=== PATIENT | male | born 1970 | race Caucasian/White ===

== ENCOUNTER 2018-06-22 02:16 | Inpatient (IN) ==
[2018-06-22 02:39] LABS: Basophils # 0.2 K/mm3 (0-0.2); Basophils % 0.9 % (0.1-2.0); Eosinophils # 0.8 K/mm3 (0.0-0.4); Eosinophils % 3.5 % (0.1-12.0); Hemoglobin 15.9 g/dL (14.1-18.0); Lymphocytes # 9.4 K/mm3 (0.7-4.5); Lymphocytes % 41.6 K/mm3 (10-50); Mean Corpuscular HGB Conc 34.4 g/dL (31.8-35.4); Mean Corpuscular Volume 89.9 fl (80-94); Mean Platelet Volume 8.7 fl (7.4-10.4); Monocytes # 1.2 K/mm3 (0.1-1.0); Monocytes % 5.4 % (1.7-9.3); Neutrophils % 48.6 % (37.0-80.0); Platelet Count 293 K/mm3 (142-424); Red Blood Count 5.12 M/mm3 (4.60-6.20); Red Cell Distribution Width 14.7 % (11.5-17.5); White Blood Count 22.6 K/mm3 (4.8-10.8)
[2018-06-22 02:41] LABS: ABG Base Excess -1.4 mmol/L (-2.4-2.3); ABG HCO3 31.6 mmhg (22.0-26.0); ABG Oxygen Saturation 95 % (90-100); ABG PO2 114.4 mmhg (80-100); ABG TCO2 36.7 mmhg (23-27)
[2018-06-22 02:42] LABS: Allen's Test Patient Unable; Oxygen 100% AMBU %
[2018-06-22 02:43] LABS: ABG PCO2 166.9 mmhg (35.0-45.0)
[2018-06-22 02:44] LABS: INR 0.99 (0.9-1.1); Prothrombin Time 10.2 seconds (9.4-11.8)
--- NOTE | 2018-06-22 02:44 | Emergency Department Note ---
ED Disposition Clinical Impression: Acute respiratory failure with hypoxia and hypercapnia Disposition: Still a Patient Condition on Discharge: Serious - Critical Care Critical Care Time: Yes Attestation: On 06/22/18, the high probability of a clinically significant, sudden or life threatening deterioration of the following system(s) required my full and direct attention, intervention and personal management. The time I documented below is in addition to time spent performing reported procedures but includes the following listed in this critical care notation. Total Critical Care Time: 45 Vital system(s) involved:: Respiratory Failure My critical care processes included: Assessment & monitoring of V/S, Initial and Re-exams, Data Review/Interpretation, Coordinating Care, Medication Orders and management, Documentation Medical Decision Making - [place] Inquiry Pt receiving controlled substance: No Vital Signs: 06/22/18 02:17 06/22/18 02:52 06/22/18 03:00 Temperature 99.5 F Temperature Source Tympanic Pulse Rate [Right Radial] 115 H 124 H Respiratory Rate 30 H 20 Blood Pressure [Right Arm] 225/152 165/113 Blood Pressure Mean [Right Arm] 176 130 02 Sat by Pulse Oximetry 75 L 99 96 Oxygen Delivery Method CPAP Oxygen Flow Rate (LPM) 100 06/22/18 04:39 06/22/18 04:50 Temperature Temperature Source Pulse Rate [Right Radial] 96 H Respiratory Rate 20 Blood Pressure [Right Arm] 127/77 Blood Pressure Mean [Right Arm] 93 02 Sat by Pulse Oximetry 99 98 Oxygen Delivery Method Mechanical Ventilation Oxygen Flow Rate (LPM) 100 - Lab Data Lab Results 06/22/18 02:24: POC Glucose 245 H 06/22/18 02:26: WBC 22.6 H*, RBC 5.12, Hgb 15.9, Hct 46.0, MCV 89.9, MCH 31.0, MCHC 34.4, RDW 14.7, Plt Count 293, MPV 8.7, Neut % (Auto) 48.6, Lymph % (Auto) 41.6, [place] % (Auto) 5.4, Eos % (Auto) 3.5, Baso % (Auto) 0.9, Neut # (Auto) 11.0 H, Lymph # (Auto) 9.4 H, [place] # (Auto) 1.2 H, Eos # (Auto) 0.8 H, Baso # ( Auto) 0.2, Total Counted 100, Neutrophils % (Manual) 53, Band Neutrophils % 4.0 , Lymphocytes % (Manual) 34, Monocytes % (Manual) 7, Eosinophils % (Manual) 2, Platelet Estimate Normal, RBC Morphology Normal 06/22/18 02:26: Sodium 137, Potassium 3.4 L, Chloride 104, Carbon Dioxide 35 H, Anion Gap 1.4 L, BUN 14, Creatinine 1.39 H, Estimated Creat Clear 102, Estimated GFR 54 L, Est GFR ( Amer) 65, Glucose 295 H, Calcium 8.6, Total Bilirubin 0.5, AST 46 H, ALT 66, Alkaline Phosphatase 138 H, Total Creatine Kinase 224, CK-MB (CK-2) 1.9, CK-MB (CK-2) Rel Index 0.8, Troponin I 0.07 H, Total Protein 8.3 H, Albumin 3.1 L, Globulin 5.2 H, Albumin/Globulin Ratio 0.6 L, Plasma/Serum Alcohol 0 06/22/18 02:26: PT 10.2, INR 0.99, APTT 27.0 06/22/18 02:26: B-Natriuretic Peptide 278 H 06/22/18 02:26: D-Dimer 990 H* 06/22/18 02:39: Specimen Source Left radial, O2 % 100% ambu, ABG pH 6.90 L*, ABG pCO2 166.9 H, ABG pO2 114.4 H, ABG HCO3 31.6 H, ABG Total CO2 36.7 H, ABG O2 Saturation 95, ABG Base Excess -1.4, Ned Test Patient unable 06/22/18 02:45: Urine Color Yellow, Urine Appearance Clear, Urine pH 6.5, Ur Specific [place] 1.025, Urine Protein 3+, Urine Glucose (UA) 2+, Urine Ketones Negative, Urine Blood 2+, Urine Nitrate Negative, Urine Bilirubin Negative, Urine Urobilinogen 1.0, Ur Leukocyte Esterase Negative, Urine RBC 5-10, Urine WBC 3-5, Ur Squamous Epith Cells 3-5 06/22/18 02:45: Urine Opiates Screen Negative, Urine Methadone Screen Negative, Ur Barbituates Screen Negative, Ur Phencyclidine Scrn Negative, Ur Amphetamines Screen Negative, U Benzodiazepines Scrn Negative, Urine Cocaine Screen Negative , U Marijuana (THC) Screen Negative 06/22/18 03:10: Lactate 1.4 06/22/18 04:20: Specimen Source Rt radial, O2 % 100, ABG pH 7.15 L*, ABG pCO2 80.1 H, ABG pO2 449.2 H, ABG HCO3 27.0 H, ABG Total CO2 29.4 H, ABG O2 Saturation 100, ABG Base Excess -2.0, Ned Test Acceptable, Vent Rate 14, Tidal Volume 530, PEEP 5 Result diagrams: 06/22/18 02:26 06/22/18 02:26 Orders (Tests/Meds): ED MEDICATIONS Generic Name Dose Route Start Last Admin Trade Name Freq PRN Reason Stop Dose Admin Propofol 100 mls @ 6.804 mls/hr 06/22/18 02:45 06/22/18 02:39 Diprivan 10mg/Ml 100ml Bottle IV 07/22/18 02:44 6.804 mls/hr .[id number] OTTO Administration Protocol 10 MCG/KG/MIN Azithromycin 500 mg/ Sodium 250 mls @ 250 mls/hr 06/22/18 03:15 Chloride IV 07/06/18 03:14 Q24H OTTO Protocol Ceftriaxone Sodium 1 gm/ 50 mls @ 100 mls/hr 06/22/18 03:15 06/22/18 04:28 Sodium Chloride IV 07/06/18 03:14 100 mls/hr Q24H OTTO Administration Protocol Clindamycin Phosphate 900 mg/ 106 mls @ 106 mls/hr 06/22/18 03:15 06/22/18 04 :38 Sodium Chloride IV 07/06/18 03:14 106 mls/hr Q8H OTTO Administration Protocol Sodium Chloride 1,000 mls @ 999 mls/hr 06/22/18 05:15 Sod Chlor 0.9% 1000ml Bag IV 06/22/18 06:15 .Q1H1M OTTO Sodium Chloride 3 ml 06/22/18 05:05 Sodium Chloride 3% 15ml Neb IH 07/22/18 05:04 ONCE PRN INDUCE SPUTUM COLLECTION Discontinued Medications Generic Name Dose Route Start Last Admin Trade Name Freq PRN Reason Stop Dose Admin Ketamine HCl 100 mg 06/22/18 02:25 06/22/18 02:26 Ketamine 500mg/10ml Vial IV 06/22/18 02:26 100 mg ONCE ONE Administration Methylprednisolone Sodium Succinate 125 mg 06/22/18 03:00 06/22/18 04:28 Solu-Medrol 125mg/2ml Vial IV 06/22/18 03:01 125 mg ONCE ONE Administration Succinylcholine Chloride 150 mg 06/22/18 02:32 06/22/18 02:27 Anectine 20mg/Ml 10ml Mdv IV 06/22/18 02:33 150 mg ONCE ONE Administration ORDERS Category Date Time Status CT abdomen pelvis wo con Stat Cat Scan 06/22/18 03:[address] head/brain wo con Stat Cat Scan 06/22/18 02:32 Taken XR chest 2V Stat Exams 06/22/18 02:30 Stop Req XR chest portable Stat Exams 06/22/18 02:37 Ordered Blood Culture Stat Micro 06/22/18 03:08 Received Sputum Culture & Gram Stain Stat Micro 06/22/18 02:55 Results - Radiology Data #1 Image(s): Chest Image Reviewed: Yes I reviewed the patient's radiology image Endotracheal tube in good position. Mild increased interstitial markings in the bases. No definite confluent infiltrates seen. - CT Data CT Scan: Head, Abdomen, Pelvis Time Received: 04:[address] Reviewed: Yes: I have viewed the radiologist's interpretation Findings Narrative: CT scan interpreted by ad radiologist. Faxed report received and reviewed: Head: No intracranial hemorrhage. No acute territorial ischemia. Abdomen/pelvis: No acute abnormality in the abdomen pelvis. Diffuse groundglass opacities in the lung bases which could be related to edema, infection, or aspiration. - ECG Data Tracing #1 EKG interpreted by Estrada Reis MD: Rhythm: sinus tachycardia Rate: 120 [place]: Rightward Ectopy: none Conduction: normal ST Segment Changes: none T Wave Changes: none Q Waves: none Minimal septal R waves no evidence of acute ischemia or injury Baseline artifact and wander present, but I consider the EKG adequate for accurate interpretation. - Physician Consults Physician Consulted: Dayana Time: 03:35 Reason -: Pt condition Comment/Response: He requests a call back when second set of ABGs is resulted - Reevaluation(s) Time: 05:22 Reevaluation #1: Color is good. Making some purposeful movements trying to pull out the tube. ABGs markedly improved. General Adult HPI - General Chief complaint: Shortness of Breath/Dyspnea Stated complaint: respiratory arrest Time Seen by Provider: 06/22/18 02:17 Mode of Arrival: EMS Limitations: No Limitations Description of Symptoms (Recalled from ER Triage Doc. by RN): states that patient has been short or breath all day. states that patient awoke her this morning with severe shortness of breath. ems arrives with patient with increased work of breathing and lethargic. - History of Present Illness HPI narrative: Brought in by EMS. Limited history available. The patient is unresponsive upon arrival. They report that the patient complained of shortness of breath all day long. Got better during the day but then worsened again tonight. He apparently was verbal but struggling to breathe when they picked him up and then became unresponsive during transport. He arrives with ventilations assisted by bag valve mask. EMS was unable to establish an IV. They state that he has no history of COPD or lung problems. He has diabetes and hypertension, but reportedly stopped taking his medications on his own quite some time ago. - Related Data Home Medications Medication Instructions Recorded Confirmed No Known Home Medications 06/22/18 06/22/18 Allergies Allergy/AdvReac Type Severity Reaction Status Date / Time No Known Allergies Allergy Verified 06/22/18 02:30 [facility] History Medical History: Reports:: Diabetes Mellitus Type 1 - Social History Alcohol Intake: never - Psychiatric History Expresses thoughts of harming self/others: None Suicide Plan Description: No Plan ROS Obtained: Yes unobtainable due to mental status Physical Exam - General General appearance: obtunded, in distress Comment: Labored, ineffective shallow respirations. Cyanotic and diaphoretic. Unresponsive to pain. - Head Head exam: atraumatic, normocephalic - Eye Eye exam: Present: PERRL - ENT ENT exam: Present: other (Vomitus in mouth) - Neck Neck exam: Present: normal inspection - Respiratory Respiratory exam: Present: respiratory distress - Cardiovascular Cardiovascular exam: Present: normal rhythm, tachycardia - Abdominal Exam Abdominal exam: Present: distention - Extremities Exam Extremities exam: Present: normal inspection - Neurological Exam Neurological exam: Present: other (Unresponsive to pain) - Skin Skin exam: Present: cyanosis, diaphoresis Procedures - Miscellaneous Procedure Procedure Performed: EndotrachealIntubation Performed by: ESTRADA REIS Consent: The procedure was performed in an emergent situation. Patient identity confirmed: arm band Indications: airway protection respiratory failure Intubation method: video Patient status: paralyzed (RSI) Pretreatment medications: none Sedatives: ketamine Paralytic: succinyl choline Laryngoscope: direct, Parra 3 Tube size: 7.5 mm Tube type: cuffed Number of attempts: 2 Cords visualized: yes. stomach contents in mouth, copious suctioning required. Post-procedure assessment: chest rise and CO2 detector Breath sounds: equal and absent over the epigastrium Cuff inflated: yes ETT to teeth: 22 cm Tube secured with: ETT [place] Chest x-ray interpreted by me. Chest x-ray findings: endotracheal tube in appropriate position Patient tolerance: Patient tolerated the procedure well with no immediate complications.
[2018-06-22 02:52] LABS: Eosinophils % 2 % (0-3); Lymphocytes % 34 % (10-50); Monocytes % 7 % (2-9); Neutrophils % 53 % (42-76); RBC Morphology Normal; Total Cells Counted 100
[2018-06-22 02:55] LABS: Microscopic, Urine URINE MICROSCOPIC (MICROSCOPIC)
[2018-06-22 03:00] LABS: Appearance,Urine CLEAR (Clear); Bilirubin,Urine Negative (Negative); Blood, Urine 2+ (Negative); Color,Urine YELLOW (Yellow); Glucose,Urine (UA) 2+ (Negative); Ketones,Urine Negative (Negative); Leukocyte Esterase,Urine Negative (Negative); PH,Urine 6.5 (5.0-8.5); Protein,Urine 3+ (Negative); Specific Gravity, Urine 1.025 (1.005-1.030)
[2018-06-22 03:01] LABS: Albumin Level 3.1 gm/dL (3.4-5.0); Albumin/Globulin Ratio 0.6 (1.1-1.8); Anion Gap 1.4 mEq/L (5-15); Bilirubin,Total 0.5 mg/dL (0.2-1.0); Calcium 8.6 mg/dL (8.5-10.1); Globulin 5.2 gm/dl (1.3-3.2); Potassium 3.4 mmoL/L (3.5-5.1); Total Protein,Serum 8.3 gm/dL (6.4-8.2)
[2018-06-22 03:05] LABS: Amphetamine/Metha Screen,Urine Negative ng/mL (<1000); Barbiturates Screen,Urine Negative ng/mL (<200); Benzodiazepines Screen,Urine Negative ng/mL (<200); Cannabinoid Screen,Urine Negative ng/mL (<50); Cocaine Screen,Urine Negative ng/mL (<300); Methadone Screen,Urine Negative ng/mL (<300); Opiate Screen,Urine Negative ng/mL (<300); Phencyclidine Screen,Urine Negative ng/mL (<25)
[2018-06-22 04:52] LABS: ABG Oxygen Saturation 100 % (90-100); ABG PO2 449.2 mmhg (80-100); ABG TCO2 29.4 mmhg (23-27)
[2018-06-22 04:56] LABS: Allen's Test Acceptable; Oxygen 100 %; PEEP 5; Tidal Volume 530
[2018-06-22 04:57] LABS: ABG PH 7.15 mmol/L (7.35-7.45)
[2018-06-22 04:58] LABS: ABG PCO2 80.1 mmhg (35.0-45.0)
--- NOTE | 2018-06-22 08:55 | Pharmacy Consult Notes ---
[facility] Pharmacy VTE Monitoring - Patient Demographics Admission date: 06/22/18 Report Date: 06/22/18 Time: 08:55 Allergies/Adverse Reactions: Patient Allergies No Known Allergies Allergy (Verified 06/22/18 06:08) Height: 1.7 m Weight: 101.151 kg Patient Problems: Current Active Problems Acute respiratory failure with hypoxia and hypercapnia (Acute) - VTE Risk Labs: VTE Related Lab Results Hgb 15.9 g/dL (14.1-18.0) 06/22/18 02:26 Hct 46.0 % (42.0-52.0) 06/22/18 02:26 Plt Count 293 K/mm3 (142-424) 06/22/18 02:26 PT 10.2 seconds (9.4-11.8) 06/22/18 02:26 INR 0.99 (0.9-1.1) 06/22/18 02:26 APTT 27.0 seconds (23.6-34.0) 06/22/18 02:26 BUN 14 mg/dL (7-18) 06/22/18 02:26 Creatinine 1.39 mg/dL (0.70-1.30) H 06/22/18 02:26 Estimated Creat Clear 102 mL/min (0-300) 06/22/18 02:26 Was VTE Risk Assessment Performed: Yes VTE Score: 5 VTE Risk Level: Low Risk - Prophylaxis VTE Prophylaxis Ordered?: Yes Types of VTE Prophylaxis: TEDS Knee High Location of Applied Device: Bilateral Lower Extremeties - VTE Diagnosis Confirmed Treatment or plan recommended: Continue Current Treatment
[2018-06-22 09:34] LABS: ABG Base Excess -0.5 mmol/L (-2.4-2.3); ABG HCO3 25.8 mmhg (22.0-26.0); ABG PH 7.31 mmol/L (7.35-7.45); ABG PO2 143.2 mmhg (80-100); ABG TCO2 27.4 mmhg (23-27)
[2018-06-22 09:36] LABS: Allen's Test ACCEPABLE; Oxygen 50 %
[2018-06-22 09:37] LABS: ABG PCO2 52.9 mmhg (35.0-45.0)
--- NOTE | 2018-06-22 13:09 | History & Physical Report ---
*Admission Date: 06/22/18 *Chief complaint: Acute hypercarbic respiratory failure *History of present illness: Mr. Zambrano is a 48-year-old male with previous diagnosis of hypertension, diabetes, COPD, CKD who is poorly compliant with outpatient treatment and has not been taking any medications for these conditions. He presents with approximately 1 week of worsening shortness of breath, cough, respiratory distress. His is at bedside helping with history, she reports that for the past few days he has had to stop certain activities such as getting under a family member struck to work on it and getting out of the shower due to dyspnea. Yesterday his symptoms became acutely worse where he was reportedly tripoding having difficulty breathing. She called EMS who brought him to the emergency room. At the time of EMS arrival to the patient's home he walked into the ambulance. Upon arrival to the ER the patient was unresponsive necessitating bag valve mask ventilation. He was emergently intubated in the emergency room due to respiratory failure. Labs on presentation consistent for hypercarbia, respiratory acidosis, renal insufficiency ([place] on CKD?). CTA performed [facility] History Medical History: Reports:: Diabetes Mellitus Type 1, Diabetes Mellitus Type 2, Hypertension Denies:: Cancer, Internal Pacemaker, MRSA Other Surgeries: No: Pacemaker Amputation: No Fractures: No - *Social History Educational Level: Attended High School Smoking Status: Current every day smoker Tobacco Type: cigarettes # Packs/Day (cigarettes): 2 Alcohol Intake: never Occupational Status: unemployed Housing: house Household Members: spouse - Psychiatric History Expresses thoughts of harming self/others: None Suicide Plan Description: No Plan *Family Hx:: Diabetes, Heart Attack, Hyperlipidemia, Hypertension Review of Systems - Review of Systems Review of systems:: unable to obtain (Patient intubated and mechanically ventilated upon initial encounter) Meds Home Medications Medication Instructions Recorded Confirmed Type No Known Home Medications 06/22/18 06/22/18 History Allergies Allergy/AdvReac Type Severity Reaction Status Date / Time No Known Allergies Allergy Verified 06/22/18 06:08 Exam Vital signs and Labs for Last 24 Hours: Temp Pulse Resp BP Pulse Ox 97.6 F 85 20 130/81 100 06/22/18 07:15 06/22/18 11:01 06/22/18 11:01 06/22/18 11:01 06/22/18 11:01 Laboratory Results - last 24 hr 06/22/18 02:24: POC Glucose 245 H 06/22/18 02:26: WBC 22.6 H*, RBC 5.12, Hgb 15.9, Hct 46.0, MCV 89.9, MCH 31.0, MCHC 34.4, RDW 14.7, Plt Count 293, MPV 8.7, Neut % (Auto) 48.6, Lymph % (Auto) 41.6, [place] % (Auto) 5.4, Eos % (Auto) 3.5, Baso % (Auto) 0.9, Neut # (Auto) 11.0 H, Lymph # (Auto) 9.4 H, [place] # (Auto) 1.2 H, Eos # (Auto) 0.8 H, Baso # ( Auto) 0.2, Total Counted 100, Neutrophils % (Manual) 53, Band Neutrophils % 4.0 , Lymphocytes % (Manual) 34, Monocytes % (Manual) 7, Eosinophils % (Manual) 2, Platelet Estimate Normal, RBC Morphology Normal 06/22/18 02:26: Sodium 137, Potassium 3.4 L, Chloride 104, Carbon Dioxide 35 H, Anion Gap 1.4 L, BUN 14, Creatinine 1.39 H, Estimated Creat Clear 102, Estimated GFR 54 L, Est GFR ( Amer) 65, Glucose 295 H, Calcium 8.6, Total Bilirubin 0.5, AST 46 H, ALT 66, Alkaline Phosphatase 138 H, Total Creatine Kinase 224, CK-MB (CK-2) 1.9, CK-MB (CK-2) Rel Index 0.8, Troponin I 0.07 H, Total Protein 8.3 H, Albumin 3.1 L, Globulin 5.2 H, Albumin/Globulin Ratio 0.6 L, Plasma/Serum Alcohol 0 06/22/18 02:26: PT 10.2, INR 0.99, APTT 27.0 06/22/18 02:26: B-Natriuretic Peptide 278 H 06/22/18 02:26: D-Dimer 990 H* 06/22/18 02:39: Specimen Source Left radial, O2 % 100% ambu, ABG pH 6.90 L*, ABG pCO2 166.9 H, ABG pO2 114.4 H, ABG HCO3 31.6 H, ABG Total CO2 36.7 H, ABG O2 Saturation 95, ABG Base Excess -1.4, Ned Test Patient unable 06/22/18 02:45: Urine Color Yellow, Urine Appearance Clear, Urine pH 6.5, Ur Specific [place] 1.025, Urine Protein 3+, Urine Glucose (UA) 2+, Urine Ketones Negative, Urine Blood 2+, Urine Nitrate Negative, Urine Bilirubin Negative, Urine Urobilinogen 1.0, Ur Leukocyte Esterase Negative, Urine RBC 5-10, Urine WBC 3-5, Ur Squamous Epith Cells 3-5 06/22/18 02:45: Urine Opiates Screen Negative, Urine Methadone Screen Negative, Ur Barbituates Screen Negative, Ur Phencyclidine Scrn Negative, Ur Amphetamines Screen Negative, U Benzodiazepines Scrn Negative, Urine Cocaine Screen Negative , U Marijuana (THC) Screen Negative 06/22/18 03:10: Lactate 1.4 06/22/18 04:20: Specimen Source Rt radial, O2 % 100, ABG pH 7.15 L*, ABG pCO2 80.1 H, ABG pO2 449.2 H, ABG HCO3 27.0 H, ABG Total CO2 29.4 H, ABG O2 Saturation 100, ABG Base Excess -2.0, Ned Test Acceptable, Vent Rate 14, Tidal Volume 530, PEEP 5 06/22/18 06:47: POC Glucose 215 H 06/22/18 09:00: Specimen Source Rt radial, O2 % 50, ABG pH 7.31 L, ABG pCO2 52.9 H, ABG pO2 143.2 H, ABG HCO3 25.8, ABG Total CO2 27.4 H, ABG Base Excess - 0.5, Ned Test Accepable 06/22/18 11:28: POC Glucose 211 H 06/23/18 06:00: Specimen Source Rt radial, O2 % 60, ABG pH 7.27 L, ABG pCO2 51.4 H, ABG pO2 116.3 H, ABG HCO3 23.1, ABG Total CO2 24.7, ABG O2 Saturation 98 , ABG Base Excess -3.8 L, Ned Test Acceptable, Vent Rate 14, Tidal Volume 550 , PEEP 5 I & O for Last 24 hours: Intake & Output 06/19/18 06/20/18 06/21/18 06/22/18 23:59 23:59 23:59 23:59 Intake Total 1118 / 1118 Output Total 100 / 100 Balance 1018 / 1018 Weight 101.151 kg Microbiology Reports for the Last 24 Hours: Microbiology 06/22/18 02:55 Sputum - Endotracheal Tube Aspirate Gram Stain - Final - *Routine HEENT Exam Head: Present: normocephalic, atraumatic Eye: Present: PERRL ENT: Present: mucous membranes moist - *Routine Neck Exam Present: supple. Absent: JVD, carotid bruit, lymphadenopathy - *Routine Respiratory Exam Present: prolonged expiratory phase, wheezes. Absent: rales, crackles Comments: Mechanically ventilated - *Routine Cardiovascular Exam Present: RRR, Normal S1, Normal S2. Absent: murmur, gallop, rubs - *Routine Abdominal Exam Present: soft, normoactive bowel sounds. Absent: tenderness - *Routine Rectal Exam Patient deferred: visual exam - *Routine Exam Patient deferred: penile exam - *Routine Extremities Exam Absent: cyanosis, clubbing, edema - *Routine Skin Exam Present: intact. Absent: cyanosis, erythema Comments: dirty hands - *Routine Neurological Exam Sedated with propofol, focalizes to painful stimuli, nonpurposeful movements H&P: Result - Labs Labs: Short CBC 06/22/18 Range/Units 02:26 WBC 22.6 H* (4.8-10.8) K/mm3 Hgb 15.9 (14.1-18.0) g/dL Hct 46.0 (42.0-52.0) % Plt Count 293 (142-424) K/mm3 BMP 06/22/18 02:26 Sodium 137 Potassium 3.4 L Chloride 104 Carbon Dioxide 35 H BUN 14 Creatinine 1.39 H Glucose 295 H Calcium 8.6 Cardiac Enzymes 06/22/18 Range/Units 02:26 Total Creatine Kinase 224 (39-308) U/L CK-MB (CK-2) 1.9 (0.0-3.6) ng/ml Troponin I 0.07 H (0.00-0.06) ng/ml Liver Function 06/22/18 Range/Units 02:26 Total Bilirubin 0.5 (0.2-1.0) mg/dL AST 46 H (15-37) U/L ALT 66 (12-78) U/L Alkaline Phosphatase 138 H (46-116) U/L Albumin 3.1 L (3.4-5.0) gm/dL Urine 06/22/18 Range/Units 02:45 Urine Color Yellow (Yellow) Urine Appearance Clear (Clear) Urine pH 6.5 (5.0-8.5) Ur Specific [place] 1.025 (1.005-1.030) Urine Protein 3+ (Negative) Urine Glucose (UA) 2+ (Negative) - Imaging and Cardiology CT scan - chest Status: image reviewed by me Additional comments: Bilateral lower lobe patchy opacification consistent with atelectasis, scant effusion on the left. No overt signs of coronary emboli, no flow voids apparent and pulmonary vasculature. Assessment and Plan (1) Acute kidney injury superimposed on chronic kidney disease Current visit: Yes Status: Acute Category: Medical Code(s): N17.9 - Acute kidney failure, unspecified; N18.9 - Chronic kidney disease, unspecified (2) Diabetes Current visit: Yes Status: Acute Category: Medical Code(s): E11.9 - Type 2 diabetes mellitus without complications (3) Tobacco abuse disorder Current visit: Yes Status: Acute Category: Medical Code(s): Z72.0 - Tobacco use (4) Hypertension Current visit: Yes Status: Acute Category: Medical Code(s): I10 - Essential (primary) hypertension (5) Acute respiratory acidosis Current visit: Yes Status: Acute Category: Medical Code(s): E87.2 - Acidosis (6) Acute respiratory failure with hypoxia and hypercapnia Current visit: Yes Status: Acute Category: Medical Code(s): J96.01 - Acute respiratory failure with hypoxia; J96.02 - Acute respiratory failure with hypercapnia - Assessment and plan all Dx Assessment and Plan for all problems:: Patient presented with acute hypercarbic and hypoxemic respiratory failure with acute respiratory acidosis. Acidosis has resolved with improved ventilation through mechanical support. Tolerated spontaneous breathing trial this morning and able to have been extubated. Transition to CPAP after extubation with continued improvement in mentation. Tolerating 1.5 L supplemental oxygen currently. Presentation most consistent with COPD exacerbation with untreated COPD at baseline. -Wean oxygen as tolerated -CPAP while sleeping -Goal O2 sats greater than 92% while awake, 88% while asleep -Sliding scale insulin for hyperglycemia -Monitor blood pressure, will only treat if becomes symptomatic and systolic greater than 180 -Transition antibiotics to and azithromycin for COPD exacerbation versus pneumonia -Steroids for COPD exacerbation -Discontinue S[place] -Advance diet -Repeat labs in the morning to monitor kidney function
[2018-06-23 06:32] LABS: Anion Gap 9.9 mEq/L (5-15); Calcium 8.4 mg/dL (8.5-10.1); Potassium 3.9 mmoL/L (3.5-5.1)
[2018-06-23 06:46] LABS: Eosinophils % 0.2 % (0.1-12.0); Hematocrit 40.2 % (42.0-52.0); Hemoglobin 13.2 g/dL (14.1-18.0); Lymphocytes # 0.7 K/mm3 (0.7-4.5); Lymphocytes % 5.8 K/mm3 (10-50); Mean Corpuscular HGB Conc 32.8 g/dL (31.8-35.4); Mean Corpuscular Hemoglobin 28.5 pg (27.0-31.2); Mean Corpuscular Volume 87.1 fl (80-94); Mean Platelet Volume 8.8 fl (7.4-10.4); Monocytes # 0.4 K/mm3 (0.1-1.0); Monocytes % 3.1 % (1.7-9.3); Neutrophils # 10.1 K/mm3 (1.8-7.8); Neutrophils % 90.3 % (37.0-80.0); Platelet Count 159 K/mm3 (142-424); Red Blood Count 4.61 M/mm3 (4.60-6.20); White Blood Count 11.1 K/mm3 (4.8-10.8)
[2018-06-23 06:51] LABS: Lymphocytes % 7 % (10-50); Monocytes % 1 % (2-9); Neutrophils % 85 % (42-76); RBC Morphology Normal; Total Cells Counted 100
--- NOTE | 2018-06-23 13:26 | Progress Note ---
Internal Medicine - PN: Subj *Date: 06/23/18 *Time: 13:46 Interval history: Overnight Mr. Zambrano tolerated BiPAP for brief time. Reports it was uncomfortable. Tolerated nasal cannula oxygen with goal sats greater than 92. Has transitioned well to regular diet. Has become more hypertensive throughout the course of today. Overall states he is "feeling better" still reports being sore. Reports improving dyspnea Denies palpitations, confusion, nausea or vomiting, headaches. Exam Vital signs and Labs for Last 24 Hours: Temp Pulse Resp BP Pulse Ox 98.5 F 108 H 20 146/88 93 L 06/23/18 08:00 06/23/18 10:51 06/23/18 08:00 06/23/18 08:00 06/23/18 08:00 Laboratory Results - last 24 hr 06/22/18 16:58: POC Glucose 285 H 06/22/18 20:32: POC Glucose 200 H 06/23/18 05:55: WBC 11.1 H D, RBC 4.61, Hgb 13.2 L, Hct 40.2 L, MCV 87.1, MCH 28.5, MCHC 32.8, RDW 15.0, Plt Count 159 D, MPV 8.8, Neut % (Auto) 90.3 H, Lymph % (Auto) 5.8 L, [place] % (Auto) 3.1, Eos % (Auto) 0.2, Baso % (Auto) 0.0 L, Neut # (Auto) 10.1 H, Lymph # (Auto) 0.7, [place] # (Auto) 0.4, Eos # (Auto) 0.0, Baso # (Auto) 0.0, Total Counted 100, Neutrophils % (Manual) 85 H, Band Neutrophils % 7.0, Lymphocytes % (Manual) 7 L, Monocytes % (Manual) 1 L, Platelet Estimate Normal, RBC Morphology Normal 06/23/18 05:55: Sodium 137, Potassium 3.9, Chloride 103, Carbon Dioxide 28, Anion Gap 9.9, BUN 21 H D, Creatinine 1.19, Estimated Creat Clear 109, Estimated GFR 65, Est GFR ( Amer) 78, Glucose 216 H, Calcium 8.4 L 06/23/18 11:50: POC Glucose 274 H I & O for Last 24 hours: Intake & Output 0806/21/18 06/22/18 06/23/18 23:59 23:59 23:59 23:59 Intake Total 2438 / 2438 580 / 580 Output Total 1100 / 1100 500 / 500 Balance 1338 / 1338 80 / 80 Weight 101.151 kg 103.901 kg - *Routine HEENT Exam Head: Present: normocephalic, atraumatic Eye: Present: EOMI, PERRL. Absent: conjunctival icterus ENT: Present: mucous membranes moist - *Routine Neck Exam Present: supple, full ROM. Absent: JVD, lymphadenopathy - *Routine Respiratory Exam Present: CTA bilaterally, prolonged expiratory phase, crackles (Scant crackles right lower lobe). Absent: accessory muscle use, rales - *Routine Cardiovascular Exam Present: RRR, Normal S1, Normal S2. Absent: murmur, gallop - *Routine Abdominal Exam Present: soft, normoactive bowel sounds. Absent: tenderness - *Routine Rectal Exam Patient deferred: visual exam - *Routine Exam Patient deferred: penile exam - *Routine Extremities Exam Absent: cyanosis, clubbing, edema - *Routine Skin Exam Present: intact. Absent: cyanosis, erythema - *Routine Neurological Exam Present: alert, oriented X3, CN II-XII intact - Routine Psychiatric Exam Present: normal affect, cooperative Assessment and Plan (1) Acute kidney injury superimposed on chronic kidney disease Current visit: Yes Status: Acute Category: Medical Code(s): N17.9 - Acute kidney failure, unspecified; N18.9 - Chronic kidney disease, unspecified Creatinine improving with fluid resuscitation Continue to monitor, labs in the morning (2) Diabetes Current visit: Yes Status: Acute Category: Medical Code(s): E11.9 - Type 2 diabetes mellitus without complications Continue sliding scale insulin, will need oral regimen once home (3) Tobacco abuse disorder Current visit: Yes Status: Acute Category: Medical Code(s): Z72.0 - Tobacco use Continue aspirin therapy, 21 mg patch (4) Hypertension Current visit: Yes Status: Acute Category: Medical Code(s): I10 - Essential (primary) hypertension Trial captopril 6.25 If responds well, initiate lisinopril daily Goal less than 160/100 (5) Acute respiratory acidosis Current visit: Yes Status: Resolved Category: Medical Code(s): E87.2 - Acidosis (6) Acute respiratory failure with hypoxia and hypercapnia Current visit: Yes Status: Acute Category: Medical Code(s): J96.01 - Acute respiratory failure with hypoxia; J96.02 - Acute respiratory failure with hypercapnia Improving, continue duo nebs Transition to oral steroids for total of 5 days Transition to oral Augmentin and azithromycin to complete course for pneumonia Supplemental oxygen as needed Assessment for home oxygen needs
[2018-06-24 06:15] LABS: Anion Gap 8.2 mEq/L (5-15); Calcium 8.6 mg/dL (8.5-10.1); Potassium 4.2 mmoL/L (3.5-5.1)
[2018-06-24 06:16] LABS: Basophils % 0.2 % (0.1-2.0); Eosinophils # 0.1 K/mm3 (0.0-0.4); Eosinophils % 0.4 % (0.1-12.0); Hematocrit 41.6 % (42.0-52.0); Hemoglobin 13.8 g/dL (14.1-18.0); Lymphocytes % 7.7 K/mm3 (10-50); Mean Corpuscular HGB Conc 33.1 g/dL (31.8-35.4); Mean Corpuscular Hemoglobin 28.7 pg (27.0-31.2); Mean Corpuscular Volume 86.6 fl (80-94); Mean Platelet Volume 9.8 fl (7.4-10.4); Monocytes # 0.5 K/mm3 (0.1-1.0); Monocytes % 4.1 % (1.7-9.3); Neutrophils # 11.2 K/mm3 (1.8-7.8); Neutrophils % 86.9 % (37.0-80.0); Platelet Count 190 K/mm3 (142-424); Red Cell Distribution Width 14.6 % (11.5-17.5); White Blood Count 12.8 K/mm3 (4.8-10.8)
[2018-06-24 06:20] VITALS: BP 161/115
[2018-06-24 06:56] LABS: Lymphocytes % 4 % (10-50); Monocytes % 3 % (2-9); Neutrophils % 93 % (42-76); RBC Morphology Normal; Total Cells Counted 100
--- NOTE | 2018-06-24 07:47 | Discharge Summary ---
General - General Admission date:: 06/22/18 Discharge date: 06/24/18 HPI HPI: Mr. Zambrano is a 48-year-old male with previous diagnosis of hypertension, diabetes, COPD, CKD who is poorly compliant with outpatient treatment and has not been taking any medications for these conditions. He presents with approximately 1 week of worsening shortness of breath, cough, respiratory distress. His is at bedside helping with history, she reports that for the past few days he has had to stop certain activities such as getting under a family member struck to work on it and getting out of the shower due to dyspnea. Yesterday his symptoms became acutely worse where he was reportedly tripoding having difficulty breathing. She called EMS who brought him to the emergency room. At the time of EMS arrival to the patient's home he walked into the ambulance. Upon arrival to the ER the patient was unresponsive necessitating bag valve mask ventilation. He was emergently intubated in the emergency room due to respiratory failure. Labs on presentation consistent for hypercarbia, respiratory acidosis, renal insufficiency (IW[place] on CKD?). CTA performed Hospital Course Hospital Course: Patient as noted was intubated in the ER for significant respiratory failure and acidosis. Improved in the emergency department with treatment and was transferred to the intensive care unit. Please see daily progress notes, in brief, patient was able to be expanded the next day, found to have a combination of COPD exacerbation and pneumonia with possible flash pulmonary edema. Also found to have significant blood pressure elevation. Patient has been noncompliant with blood pressure medications because of cost issues. He improved very nicely, able to be weaned off of respiratory support and CPAP therapy in on to room air and blood pressure was moderately controlled with the addition of lisinopril and carvedilol. This morning he feels well, is afebrile, exam has normalized. He will be discharged home with prednisone, antibiotics and blood pressure medicine with short-term follow-up with his regular physician in 4 days. Objective Vital signs: Temp Pulse Resp BP Pulse Ox 98.1 F 98 H 18 161/115 90 L 06/24/18 00:00 06/24/18 06:17 06/24/18 04:00 06/24/18 06:00 06/24/18 06:17 Narrative: Patient is alert, pleasant. Talkative. Lungs have good air movement, minimal rhonchi in the left base. Heart rate regular, abdomen soft, good distal perfusion, normal pulses in all 4 extremities. Abdomen soft and nontender, no edema. Results Labs on day of discharge: Labs from last 24 hours 06/24/18 06/24/18 06/24/18 05:52 05:52 05:52 WBC 12.8 H RBC 4.80 Hgb 13.8 L Hct 41.6 L MCV 86.6 MCH 28.7 MCHC 33.1 RDW 14.6 Plt Count 190 MPV 9.8 Neut % (Auto) 86.9 H Lymph % (Auto) 7.[address] [place] % (Auto) 4.1 Eos % (Auto) 0.4 Baso % (Auto) 0.2 Neut # (Auto) 11.2 H Lymph # (Auto) 1.0 [place] # (Auto) 0.5 Eos # (Auto) 0.1 Baso # (Auto) 0.0 Total Counted 100 Neutrophils % (Manual) 93 H Lymphocytes % (Manual) 4 L Monocytes % (Manual) 3 Platelet Estimate Normal RBC Morphology Normal Sodium 139 Potassium 4.2 Chloride 105 Carbon Dioxide 30 Anion Gap 8.2 BUN 27 H D Creatinine 1.01 Estimated Creat Clear 129 Estimated GFR 78 Est GFR ( Amer) 95 D Glucose 183 H POC Glucose 175 H Calcium 8.6 06/23/18 06/23/18 06/23/18 19:34 16:50 11:50 WBC RBC Hgb Hct MCV MCH MCHC RDW Plt Count MPV Neut % (Auto) Lymph % (Auto) [place] % (Auto) Eos % (Auto) Baso % (Auto) Neut # (Auto) Lymph # (Auto) [place] # (Auto) Eos # (Auto) Baso # (Auto) Total Counted Neutrophils % (Manual) Lymphocytes % (Manual) Monocytes % (Manual) Platelet Estimate RBC Morphology Sodium Potassium Chloride Carbon Dioxide Anion Gap BUN Creatinine Estimated Creat Clear Estimated GFR Est GFR ( Amer) Glucose POC Glucose 229 H 281 H 274 H Calcium 06/23/18 05:30 WBC RBC Hgb Hct MCV MCH MCHC RDW Plt Count MPV Neut % (Auto) Lymph % (Auto) [place] % (Auto) Eos % (Auto) Baso % (Auto) Neut # (Auto) Lymph # (Auto) [place] # (Auto) Eos # (Auto) Baso # (Auto) Total Counted Neutrophils % (Manual) Lymphocytes % (Manual) Monocytes % (Manual) Platelet Estimate RBC Morphology Sodium Potassium Chloride Carbon Dioxide Anion Gap BUN Creatinine Estimated Creat Clear Estimated GFR Est GFR ( Amer) Glucose POC Glucose 208 H Calcium Preliminary micro results at discharge 06/22/18 02:55 Sputum Culture - Preliminary Sputum - Endotracheal Tube Aspirate 06/22/18 03:08 Blood Culture - Preliminary Blood NO GROWTH AFTER 48 HOURS 06/22/18 03:08 Blood Culture - Preliminary Blood NO GROWTH AFTER 48 HOURS DS: Diagnosis - Discharge Diagnosis (1) Acute kidney injury superimposed on chronic kidney disease Status: Resolved (2) Diabetes Status: Chronic (3) Tobacco abuse disorder Status: Chronic (4) Hypertension Status: Chronic (5) Acute respiratory acidosis Status: Resolved (6) Acute respiratory failure with hypoxia and hypercapnia Status: Resolved (7) Chronic kidney disease, stage I Status: Chronic (8) Pneumonia Status: Acute Discharge Plan - Patient Discharge Instructions ACTIVITY: Continue current activity, Other DIET: continue same diet Additional Instructions: No work until seen by primary physician - Follow up Plan Follow up with: Ag Bradley [Primary Care Provider] - 06/28/18 Disposition: Home, Self-Long-Term Medications: Home Medications Medication Instructions Recorded Confirmed Type No Known Home Medications 06/22/18 06/22/18 History Prescriptions/Medication Reconciliation: New Carvedilol [Carvedilol 25mg Tab] 25 mg PO BID #60 tab Lisinopril [Lisinopril 20mg Tab] 20 mg PO DAILY 30 Days #30 tab Amoxicillin/Potassium Clav [Augmentin 500mg tab] 1 tab PO TID #21 tab predniSONE [Deltasone 20mg tablet] 20 mg PO BID 7 Days #14 tab No Action No Known Home Medications
[2018-06-25 06:13] LABS: ABG Oxygen Saturation 98 % (90-100)
== END 2018-06-24 10:30 | disposition home or self-care (01) ==
LOC: ER 02:16 → 2ND 05:07
PROVIDERS: ADMIT Internal Medicine Adolescent Medicine; ATTEND Internal Medicine Adolescent Medicine
CPT/HCPCS: 31500; 36415; 70450; 71010; 71045; 71275; 74176; 80048; 80053; 80305; 81001; 82550; 82553; 82803; 82962; 83605; 83880; 84484; 85007; 85025; 85378; 85610; 85730; 87040; 87070; 87205; 93005; 94640; 94660; 94760; 94761; 96365; 96367; 96375; 99285; J0330; J0456; J2543; J2704; Q9967; S0077

== ENCOUNTER → 2018-08-14 09:14 | Outpatient (CLI) | payer BC, SELFPAY ==
--- NOTE | 2018-08-14 09:21 | XR_ITS ---
XR chest 2V HISTORY: ITS.REASON: PNEUMONIA, COPD ORDERING PHYSICIAN: Ag Bradley PATIENT AGE: 48 years COMPARISON: 06/23/2018 FINDINGS: The cardiomediastinal silhouette and pulmonary vascularity are within normal limits. The lungs are clear without infiltrates, suspicious nodules, or pleural effusions. No acute bony abnormalities. IMPRESSION: Negative chest, no acute finding
== END ==
PROVIDERS: PCP Internal Medicine; Visit Provider Internal Medicine
DX: J18.9 Pneumonia, unspecified organism (principal); J44.9 Chronic obstructive pulmonary disease, unspecified
CPT/HCPCS: 71046

== ENCOUNTER 2023-11-16 13:38 | Emergency (ER) | payer SELFPAY ==
[2023-11-16] VITALS (10 sets, daily range): BP systolic 157–214; BP diastolic 98–129; PULSE 97–130; RESP 13–40; TEMP 36.3–36.7; O2SAT 84–99; BMI 30.1
--- NOTE | 2023-11-16 13:46 | ECG_ITS ---
APPROVED REPORT Exam: Resting ECG HR:125 bpm ECG Measurements Heart Rate 125 AXES MO 201 P -7 QRSd 108 QRS -76 QT 325 T 68 QTc 399 Conclusion SINUS TACHYCARDIA WITH FREQUENT VENTRICULAR PREMATURE COMPLEXES LEFT AXIS DEVIATION [QRS AXIS < -30] POSSIBLE ANTERIOR MYOCARDIAL INFARCTION , OF INDETERMINATE AGE [30 ms Q WAVE IN V3/V4, OR R < 0.2 mV IN V4] ABNORMAL ECG UNCONFIRMED REPORT Electronically signed by : Richard Coleman MD 11/17/2023 08:44:12
--- NOTE | 2023-11-16 13:48 | ED_ITS ---
Discharge Plan Disposition Patient Disposition: Left Against Medical Advice Prescriptions Prescriptions: New doxycycline hyclate 100 mg capsule 100 mg PO BID 10 Days Qty: 20 0RF prednisone 50 mg tablet 50 mg PO DAILY 5 Days Qty: 5 0RF Rx Instructions: Please begin 1 day after ED visit albuterol sulfate 90 mcg/actuation HFA aerosol inhaler 4 inh inhalation Q4H PRN (Reason: shortness of breath or wheezing) Qty: 8.5 0RF Rx Instructions: 4 puffs every 4 hours for 48 hours then as needed for shortness of breath or wheezing following No Action prednisone 20 MG tablet 20 mg PO BID 7 Days Qty: 14 0RF carvedilol 25 MG tablet 25 mg PO BID Qty: 60 0RF lisinopril 20 MG tablet 20 mg PO DAILY 30 Days Qty: 30 0RF amoxicillin-pot clavulanate 1 EACH tablet 1 tab PO TID Qty: 21 0RF Referrals Follow up/Referrals: Arjun Sheppard MD [Staff Physician] - See instructions Provider,MD Marie [Referring] - See instructions Clinical Impressions Clinical Impression: Hypoxic respiratory failure, Non-ST elevation AL (NSTEMI), Acute exacerbation of chronic obstructive pulmonary disease, Bilateral pneumonia Discharge ED Provider: Tank Segura General Adult HPI <Tank Segura MD - Last Filed: 11/16/23 16:57> General Chief complaint: Shortness of Breath/Dyspnea Stated complaint: SOA Time Seen by Provider: 11/16/23 13:48 History of Present Illness HPI narrative: Patient presents for evaluation of shortness of breath. It is worsened over the past 24 to 48 hours however he describes chronic shortness of breath. Has history of COPD requiring hospitalization, associated respiratory failure. He states he additionally has history of hypertension. He has not had access to his medication for what he reports to be years due to insurance reasons. He is noted to be a smoker. Denies any fevers or chills or nausea or vomiting. Describes associated chest pressure that is substernal, nonradiating, nonpleuritic, nonexertional, nonreproducible. No oxygen requirement at home. Arrived to the emergency department tachypneic, hypoxemic. Related Data Previous Rx's Medication Instructions Recorded amoxicillin 500 mg-potassium 1 tab PO TID #21 tabs 06/24/18 clavulanate 125 mg tablet carvedilol 25 mg tablet 25 mg PO BID #60 tabs 06/24/18 lisinopril 20 mg tablet 20 mg PO DAILY 30 days #30 tabs 06/24/18 prednisone 20 mg tablet 20 mg PO BID 7 days #14 tabs 06/24/18 albuterol sulfate 90 mcg/actuation 4 inh inhalation Q4H PRN shortness 11/16/23 aerosol inhaler of breath or wheezing #8.5 grams doxycycline hyclate 100 mg capsule 100 mg PO BID 10 days #20 caps 11/16/23 prednisone 50 mg tablet 50 mg PO DAILY 5 days #5 tabs 11/16/23 Allergies Allergy/AdvReac Type Severity Reaction Status Date / Time No Known Allergies Allergy Verified 06/22/18 06:08 PFS <Tank Segura MD - Last Filed: 11/16/23 16:57> [facility] Disclaimer: The information contained in this section may have been updated after the patient was seen, as this information can be updated by other users. Social History Smoking Status: Current every day smoker tobacco type: cigarettes packs per day: 2 second hand exposure: Yes alcohol intake: never current occupational status: unemployed Travel in the last 8 weeks: None household members: spouse housing: house caffeine: Yes <Tank Segura MD - Last Filed: 11/16/23 16:57> ROS Obtained: Yes Systems reviewed as appropriate & no additional complaints except as documented As per HPI Physical Exam <Tank Segura MD - Last Filed: 11/16/23 16:57> General General appearance: alert and in distress Head Head exam: atraumatic and normocephalic Eye Eye exam: Present normal appearance Neck Neck exam: Present normal inspection Chest Chest inspection: Present normal inspection and symmetric chest wall rise Respiratory Respiratory exam: Present respiratory distress, wheezes, accessory muscle use and prolonged expiratory phase Cardiovascular Cardiovascular exam: Present regular rate and normal rhythm Abdominal Exam Abdominal exam: Present soft Neurological Exam Neurological exam: Present alert and oriented X3 Psychiatric Psychiatric exam: Present normal affect and normal mood Skin Skin exam: Present warm and dry Medical Decision Making <Tank Segura MD - Last Filed: 11/16/23 16:57> Medical Records Medical records reviewed: Yes I reviewed the patient's medical records. [place] Inquiry Pt receiving controlled substance: No Vital Signs: 11/16/23 13:39 11/16/23 14:01 11/16/23 14:31 Temperature 97.4 F L Temperature Source Oral Pulse Rate 117 H 108 H Pulse Rate [Right Radial] 130 H Respiratory Rate 40 H 39 H 21 Blood Pressure 191/128 H 177/113 H Blood Pressure [Right Arm] 214/129 H Blood Pressure Mean 142 137 Blood Pressure Mean [Right Arm] 157 02 Sat by Pulse Oximetry 84 L 97 96 Oxygen Delivery Method Room Air Room Air Nasal Cannula Oxygen Flow Rate (LPM) 5 3 11/16/23 15:01 11/16/23 15:31 11/16/23 16:01 Temperature Temperature Source Pulse Rate 102 H 100 H 102 H Pulse Rate [Right Radial] Respiratory Rate 20 15 21 Blood Pressure 157/103 H 166/98 H 170/109 H Blood Pressure [Right Arm] Blood Pressure Mean 121 121 129 Blood Pressure Mean [Right Arm] 02 Sat by Pulse Oximetry 99 98 98 Oxygen Delivery Method Room Air Room Air Room Air Oxygen Flow Rate (LPM) 11/16/23 16:30 11/16/23 17:00 Temperature Temperature Source Pulse Rate 97 H 97 H Pulse Rate [Right Radial] Respiratory Rate 20 13 Blood Pressure 167/106 H 158/98 H Blood Pressure [Right Arm] Blood Pressure Mean 126 118 Blood Pressure Mean [Right Arm] 02 Sat by Pulse Oximetry Oxygen Delivery Method Oxygen Flow Rate (LPM) Lab Data Lab Results 11/16/23 13:55: SARS-CoV-2 (PCR) Not detected, Influenza A Untype (PCR) Not detected, Influenza Type B (PCR) Not detected 11/16/23 13:58: WBC 11.1 H, RBC 5.39, Hgb 15.5, Hct 46.1, MCV 85.5, MCH 28.7, MCHC 33.6, RDW 14.8, Plt Count 213, MPV 10.0, Neut % (Auto) 77.9, Lymph % (Auto) 14.4, [place] % (Auto) 4.7, Eos % (Auto) 2.5, Baso % (Auto) 0.5, Neut # (Auto) 8.6 H, Lymph # (Auto) 1.6, [place] # (Auto) 0.5, Eos # (Auto) 0.3, Baso # (Auto) 0.1, Sodium 135 L, Potassium 4.0, Chloride 100, Carbon Dioxide 29, Anion Gap 10.0, BUN 14, Creatinine 1.10, Estimated Creat Clear 102, Estimated GFR 69, Est GFR ( Amer) 84, Glucose 215 H, Calcium 8.4, Total Bilirubin 0.9, AST 58, ALT 55, Alkaline Phosphatase 132 H, Troponin I 0.09 H, NT-Pro-B Natriuret Pep 1540 H , Total Protein 7.9, Albumin 4.1, Globulin 3.8 H, Albumin/Globulin Ratio 1.1 11/16/23 14:08: VBG pH 7.24 L, VBG pCO2 59.0 H, VBG pO2 47.8 H, VBG HCO3 24.8, VBG Total CO2 26.6, VBG O2 Saturation 80.3 H, VBG Base Excess -2.6 L 11/16/23 15:47: VBG pH 7.35, VBG pCO2 45.9, VBG pO2 37.1, VBG HCO3 24.7, VBG Total CO2 26.1, VBG O2 Saturation 67.9, VBG Base Excess -0.9 11/16/23 16:30: Troponin I 0.13 H 11/16/23 13:58 11/16/23 13:58 Orders (Tests/Meds): ED MEDICATIONS Generic Name Dose Route Start Last Admin Trade Name Freq PRN Reason Stop Dose Admin Piperacillin Sod/Tazobactam 100 mls @ 200 mls/hr 11/16/23 15:15 11/16/23 15:27 Sod 4.5 gm/ Sodium Chloride IV 11/26/23 15:14 200 mls/hr Q6H OTTO Administration Discontinued Medications Generic Name Dose Route Start Last Admin Trade Name Freq PRN Reason Stop Dose Admin Albuterol/Ipratropium 3 ml 11/16/23 15:12 11/16/23 15:27 Ipratropium/Albuterol 3 Ml Neb IH 11/16/23 15:13 3 ml ONCE ONE Administration Magnesium Sulfate 2 gm in 50 mls @ 50 mls/hr 11/16/23 14:06 11/16/23 14:19 Magnesium Sulfate 2gm/50ml Premix IV 11/16/23 15:05 50 mls/hr ONCE ONE Administration Methylprednisolone Sodium Succinate 40 mg 11/16/23 14:06 11/16/23 14:19 Methylprednisolone Sod Succ 40mg Vial IV 11/16/23 14:07 40 mg ONCE ONE Administration ORDERS Category Date Time Status XR chest 2V Stat Exams 11/16/23 14:07 Completed BNP [Brain Natriuretic Peptide] Stat Lab 11/16/23 13:58 Completed CBC w/Auto Diff [Complete Blood Count Auto Diff] Stat Lab 11/16/23 13:58 Completed CMP [Comprehensive Metabolic Panel] Stat Lab 11/16/23 13:58 Completed Rapid PCR Covid and Flu A/B Stat Lab 11/16/23 13:55 Completed Troponin I Q2H Lab 11/16/23 13:58 Completed Troponin I Q2H Lab 11/16/23 16:30 Completed Troponin I Q2H Lab 11/16/23 19:00 Ordered Troponin I Q2H Lab 11/16/23 22:00 Ordered Blood Culture Stat Micro 11/16/23 15:20 Received VBG [Venous Blood Gas] Stat RT 11/16/23 14:08 Completed VBG [Venous Blood Gas] Stat RT 11/16/23 15:47 Completed ECG initial Besson Routine Y 11/16/23 13:46 Completed ECG repeat same Besson Routine Y 11/16/23 14:53 Completed Medical Decision Narrative: Patient with history and exam per above presenting for evaluation of shortness of breath Diagnoses considered include COPD exacerbation, pneumonia, ACS, heart failure exacerbation, hypertensive emergency, among others ED workup and treatment included: Serial blood gases, CBC, CMP, troponins, BNP, COVID test, chest x-ray Patient was treated with 2 DuoNebs, magnesium IV, Solu-Medrol 40 mg IV, Zosyn for concern for healthcare associated pneumonia Labs were independently interpreted by me, significant for initial blood gas with respiratory acidosis, second blood gas with improvement, chest x-ray read pending, initial troponin elevated however consistent roughly with baseline EKG was independently visualized and interpreted by me significant for sinus rhythm, frequent PVCs, no acute ST changes At this time care was transferred to incoming physician. Patient has improvement of symptoms upon repeat evaluation, oxygen requirement is being weaned, disposition will pend on delta troponin, in conjunction with clinical work of breathing. <Magdaleno Carter MD - Last Filed: 11/16/23 17:28> Vital Signs: 11/16/23 13:39 11/16/23 14:01 11/16/23 14:31 Temperature 97.4 F L Temperature Source Oral Pulse Rate 117 H 108 H Pulse Rate [Right Radial] 130 H Respiratory Rate 40 H 39 H 21 Blood Pressure 191/128 H 177/113 H Blood Pressure [Right Arm] 214/129 H Blood Pressure Mean 142 137 Blood Pressure Mean [Right Arm] 157 02 Sat by Pulse Oximetry 84 L 97 96 Oxygen Delivery Method Room Air Room Air Nasal Cannula Oxygen Flow Rate (LPM) 5 3 11/16/23 15:01 11/16/23 15:31 11/16/23 16:01 Temperature Temperature Source Pulse Rate 102 H 100 H 102 H Pulse Rate [Right Radial] Respiratory Rate 20 15 21 Blood Pressure 157/103 H 166/98 H 170/109 H Blood Pressure [Right Arm] Blood Pressure Mean 121 121 129 Blood Pressure Mean [Right Arm] 02 Sat by Pulse Oximetry 99 98 98 Oxygen Delivery Method Room Air Room Air Room Air Oxygen Flow Rate (LPM) 11/16/23 16:30 11/16/23 17:00 Temperature Temperature Source Pulse Rate 97 H 97 H Pulse Rate [Right Radial] Respiratory Rate 20 13 Blood Pressure 167/106 H 158/98 H Blood Pressure [Right Arm] Blood Pressure Mean 126 118 Blood Pressure Mean [Right Arm] 02 Sat by Pulse Oximetry Oxygen Delivery Method Oxygen Flow Rate (LPM) Lab Data Lab results reviewed: Yes I reviewed the patient's lab results. Lab Results 11/16/23 13:55: SARS-CoV-2 (PCR) Not detected, Influenza A Untype (PCR) Not detected, Influenza Type B (PCR) Not detected 11/16/23 13:58: WBC 11.1 H, RBC 5.39, Hgb 15.5, Hct 46.1, MCV 85.5, MCH 28.7, MCHC 33.6, RDW 14.8, Plt Count 213, MPV 10.0, Neut % (Auto) 77.9, Lymph % (Auto) 14.4, [place] % (Auto) 4.7, Eos % (Auto) 2.5, Baso % (Auto) 0.5, Neut # (Auto) 8.6 H, Lymph # (Auto) 1.6, [place] # (Auto) 0.5, Eos # (Auto) 0.3, Baso # (Auto) 0.1, Sodium 135 L, Potassium 4.0, Chloride 100, Carbon Dioxide 29, Anion Gap 10.0, BUN 14, Creatinine 1.10, Estimated Creat Clear 102, Estimated GFR 69, Est GFR ( Amer) 84, Glucose 215 H, Calcium 8.4, Total Bilirubin 0.9, AST 58, ALT 55, Alkaline Phosphatase 132 H, Troponin I 0.09 H, NT-Pro-B Natriuret Pep 1540 H , Total Protein 7.9, Albumin 4.1, Globulin 3.8 H, Albumin/Globulin Ratio 1.1 11/16/23 14:08: VBG pH 7.24 L, VBG pCO2 59.0 H, VBG pO2 47.8 H, VBG HCO3 24.8, VBG Total CO2 26.6, VBG O2 Saturation 80.3 H, VBG Base Excess -2.6 L 11/16/23 15:47: VBG pH 7.35, VBG pCO2 45.9, VBG pO2 37.1, VBG HCO3 24.7, VBG Total CO2 26.1, VBG O2 Saturation 67.9, VBG Base Excess -0.9 11/16/23 16:30: Troponin I 0.13 H Orders (Tests/Meds): ED MEDICATIONS Generic Name Dose Route Start Last Admin Trade Name Freq PRN Reason Stop Dose Admin Piperacillin Sod/Tazobactam 100 mls @ 200 mls/hr 11/16/23 15:15 11/16/23 15:27 Sod 4.5 gm/ Sodium Chloride IV 11/26/23 15:14 200 mls/hr Q6H OTTO Administration Discontinued Medications Generic Name Dose Route Start Last Admin Trade Name Freq PRN Reason Stop Dose Admin Albuterol/Ipratropium 3 ml 11/16/23 15:12 11/16/23 15:27 Ipratropium/Albuterol 3 Ml Neb IH 11/16/23 15:13 3 ml ONCE ONE Administration Magnesium Sulfate 2 gm in 50 mls @ 50 mls/hr 11/16/23 14:06 11/16/23 14:19 Magnesium Sulfate 2gm/50ml Premix IV 11/16/23 15:05 50 mls/hr ONCE ONE Administration Methylprednisolone Sodium Succinate 40 mg 11/16/23 14:06 11/16/23 14:19 Methylprednisolone Sod Succ 40mg Vial IV 11/16/23 14:07 40 mg ONCE ONE Administration ORDERS Category Date Time Status XR chest 2V Stat Exams 11/16/23 14:07 Completed BNP [Brain Natriuretic Peptide] Stat Lab 11/16/23 13:58 Completed CBC w/Auto Diff [Complete Blood Count Auto Diff] Stat Lab 11/16/23 13:58 Completed CMP [Comprehensive Metabolic Panel] Stat Lab 11/16/23 13:58 Completed Rapid PCR Covid and Flu A/B Stat Lab 11/16/23 13:55 Completed Troponin I Q2H Lab 11/16/23 13:58 Completed Troponin I Q2H Lab 11/16/23 16:30 Completed Troponin I Q2H Lab 11/16/23 19:00 Ordered Troponin I Q2H Lab 11/16/23 22:00 Ordered Blood Culture Stat Micro 11/16/23 15:20 Received VBG [Venous Blood Gas] Stat RT 11/16/23 14:08 Completed VBG [Venous Blood Gas] Stat RT 11/16/23 15:47 Completed ECG initial [place] Routine Y 11/16/23 13:46 Completed ECG repeat same [place] Routine Y 11/16/23 14:53 Completed Medical Decision Narrative: Patient with history and exam per above presenting for evaluation of shortness of breath Diagnoses considered include COPD exacerbation, pneumonia, ACS, heart failure exacerbation, hypertensive emergency, among others ED workup and treatment included: Serial blood gases, CBC, CMP, troponins, BNP, COVID test, chest x-ray Patient was treated with 2 DuoNebs, magnesium IV, Solu-Medrol 40 mg IV, Zosyn for concern for healthcare associated pneumonia Labs were independently interpreted by me, significant for initial blood gas with respiratory acidosis, second blood gas with improvement, chest x-ray read pending, initial troponin elevated however consistent roughly with baseline EKG was independently visualized and interpreted by me significant for sinus rhythm, frequent PVCs, no acute ST changes At this time care was transferred to incoming physician. Patient has improvement of symptoms upon repeat evaluation, oxygen requirement is being weaned, disposition will pend on delta troponin, in conjunction with clinical work of breathing. Is Dr. Carter I took over for Dr. Og pending serial troponins and reassessment of the patient. Patient dramatically improved with interventions chest x-ray performed which I personally interpreted shows bilateral acute infiltrates that are mainly interstitial in nature. Also his troponin is elevated and is trending up consistent with an NSTEMI likely type II demand ischemia. For this reason I advised the patient to be admitted in the hospital but he refuses largely secondary to economic reasons. He did sign out AMA he understood that he could have disability and . I still put a referral in for Dr. Sheppard prescribed him antibiotics breathing treatments and steroids to go home with. He has been advised to return to the emergency department with any recurrence or worsening of his symptoms or if he changes his mind and wants to be admitted for further evaluation. Critical Care <Tank Segura MD - Last Filed: 11/16/23 16:57> Critical Care Time Critical Care Time: No <Magdaleno Carter MD - Last Filed: 11/16/23 17:28> Critical Care Time Critical Care Time: Yes Attestation: On 11/16/23, the high probability of a clinically significant, sudden or life threatening deterioration of the following system(s) required my full and direct attention, intervention and personal management. The time I documented below is in addition to time spent performing reported procedures but includes the following listed in this critical care notation. Total Time Total Critical Care Time: 35
--- NOTE | 2023-11-16 14:07 | XR_ITS ---
FINAL REPORT TECHNIQUE: Chest PA & Lateral CLINICAL HISTORY: Shortness of breath, hypoxemia, wheezing, hx copd COMPARISON: 08/14/2018 FINDINGS: 2 views of the chest were performed. The heart size is mildly enlarged. The mediastinum is within normal limits. Mild interstitial opacity throughout both lungs is new from the prior study. There is a localized airspace opacity at the right lung base probably secondary to diffuse edema. There are no pleural effusions. There is no pneumothorax. The bony thorax appears intact. IMPRESSION: New bilateral interstitial opacity. Localized airspace opacity right lung base. Reviewed, Interpreted and Dictated by Michael Johnson MD Transcribed by Ina Hansen Authenticated and [facility][1]
[2023-11-16 14:14] LABS: Coronavirus 19, PCR Not Detected (NotDetected); Influenza A, PCR Not Detected (NotDetected); Influenza B, PCR Not Detected (NotDetected)
[2023-11-16 14:17] LABS: Chloride 100 mmol/L (98-107)
[2023-11-16 14:18] LABS: Sodium 135 mmol/L (136-145)
[2023-11-16] MEDS: METHYLPREDNISOLONE SOD SUCC 40MG VIAL 40 MG IV (14:19)
[2023-11-16] MEDS: MAGNESIUM SULFATE IN WATER 2 GM/50 ML PIGGYBACK IV (14:19)
[2023-11-16 14:20] LABS: Alanine Aminotransferase 55 U/L (12-78); Alkaline Phosphatase 132 U/L (38-126); Aspartate Amino Transferase 58 U/L (17-59); Bilirubin,Total 0.9 mg/dl (0.2-1.3); Blood Urea Nitrogen 14 mg/dl (9-20); Creatinine Clearance Estimated 102 mL/min (50-200); Estimated Glomerular Filt Rate 69 ml/min (>60); GFR (African American) 84 ML/MIN (>60)
[2023-11-16 14:21] LABS: VBG Base Excess -2.6 mmol/L (-2.4-2.3); VBG HCO3 24.8 mmol/L (23-30); VBG Oxygen Saturation 80.3 % (50-70); VBG PH 7.24 mmol/L (7.31-7.41); VBG PO2 47.8 mmol/L (28-40); VBG Total CO2 26.6 mmol/L (23-27)
[2023-11-16 14:21] LABS: Albumin Level 4.1 g/dl (3.5-5.0); Albumin/Globulin Ratio 1.1 (1.1-1.8); Basophils # 0.1 K/mm3 (0-0.2); Basophils % 0.5 % (0.1-2.0); Calcium 8.4 mg/dl (8.4-10.2); Carbon Dioxide 29 mmol/L (22.0-30.0); Eosinophils # 0.3 K/mm3 (0.0-0.4); Eosinophils % 2.5 % (0.1-12.0); Globulin 3.8 g/dL (1.3-3.2); Glucose 215 mg/dl (74-100); Hematocrit 46.1 % (42.0-52.0); Hemoglobin 15.5 g/dL (14.1-18.0); Lymphocytes # 1.6 K/mm3 (0.7-4.5); Lymphocytes % 14.4 % (10-50); Mean Corpuscular HGB Conc 33.6 g/dL (31.8-35.4); Mean Corpuscular Hemoglobin 28.7 pg (27.0-31.2); Mean Corpuscular Volume 85.5 fl (80-94); Monocytes # 0.5 K/mm3 (0.1-1.0); Monocytes % 4.7 % (1.7-9.3); Neutrophils # 8.6 K/mm3 (1.8-7.8); Neutrophils % 77.9 % (37.0-80.0); Platelet Count 213 K/mm3 (142-424); Red Blood Count 5.39 M/mm3 (4.60-6.20); Red Cell Distribution Width 14.8 % (11.5-17.5); Total Protein,Serum 7.9 g/dl (6.3-8.2); White Blood Count 11.1 K/mm3 (4.8-10.8)
[2023-11-16 14:30] LABS: NT Pro Brain Natriuretic Pep. 1540 pg/mL (0-125)
[2023-11-16 14:33] LABS: Troponin I 0.09 ng/ml (0.00-0.034)
--- NOTE | 2023-11-16 14:53 | ECG_ITS ---
APPROVED REPORT Exam: Resting ECG HR:104 bpm ECG Measurements Heart Rate 104 AXES IN 222 P 66 QRSd 120 QRS 46 QT 349 T 79 QTc 410 Conclusion SINUS TACHYCARDIA WITH FIRST DEGREE AV BLOCK WITH FREQUENT VENTRICULAR PREMATURE COMPLEXES LEFT ATRIAL ENLARGEMENT [-0.15mV P-WAVE IN V1/V2] MODERATE INTRAVENTRICULAR CONDUCTION DELAY [105+ ms QRS DURATION, 80+ ms Q/S IN V1/V2, NO Q AND 60+ ms R IN I/aVL/V5/V6] ABNORMAL ECG UNCONFIRMED REPORT Electronically signed by : Richard Coleman MD 11/17/2023 08:43:59
--- NOTE | 2023-11-16 14:56 | PC.NURSE ---
repeat EKG given to Dr. Segura
[2023-11-16] MEDS: IPRATROPIUM/ALBUTEROL 3 ML NEB IH (15:27)
[2023-11-16] MEDS: PIPERACILLIN/TAZO 4.5 GM in 0.9 % SODIUM CHLORIDE 100 ML IV (15:27)
[2023-11-16 16:03] LABS: VBG Base Excess -0.9 mmol/L (-2.4-2.3); VBG HCO3 24.7 mmol/L (23-30); VBG Oxygen Saturation 67.9 % (50-70); VBG PCO2 45.9 mmol/L (35-51); VBG PH 7.35 mmol/L (7.31-7.41); VBG PO2 37.1 mmol/L (28-40); VBG Total CO2 26.1 mmol/L (23-27)
[2023-11-16 17:13] LABS: Troponin I 0.13 ng/ml (0.00-0.034)
--- NOTE | 2023-11-16 17:21 | PC.NURSE ---
Dr. Carter at to update patient on POC/results
--- NOTE | 2023-11-16 17:35 | PC.NURSE ---
Dr. Carter spoke with patient regarding admission. Pt requesting to leave AMA d/t concern for not having insurance. Went in and spoke with patient regarding risk of leaving AMA and services available regarding assistance with bill and insurance, pt still states he wants to leave AMA. pt instructed to return with worsening of symptoms. MD sending prescriptions for patient to fill, pt in agreeance.
--- NOTE | 2023-11-16 17:36 | PC.NURSE ---
pt requesting to leave AMA. pt does not want to be admitted to the hospital, pt states that he is worried about the bill. educated pt about resources available for him. pt requesting to go home. educated pt about returning to hospital for worsening symptoms.
== END 2023-11-16 17:31 | disposition left against medical advice (07) ==
PROVIDERS: Emergency Provider Emergency Medicine; PCP Internal Medicine
DX: J96.91 Respiratory failure, unspecified with hypoxia (principal); I21.4 Non-ST elevation (NSTEMI) myocardial infarction; J44.1 Chronic obstructive pulmonary disease with (acute) exacerbation; J18.9 Pneumonia, unspecified organism; F17.210 Nicotine dependence, cigarettes, uncomplicated; I49.3 Ventricular premature depolarization
CPT/HCPCS: 71046; 80053; 82803; 83880; 84484; 85025; 87040; 87636; 93005; 96361; 96365; 96375; 99291; J2543; J3475

== ENCOUNTER 2023-11-18 09:56 | Emergency (ER) | payer SELFPAY ==
[2023-11-18 09:57] VITALS: BP 197/140; PULSE 122; RESP 20; TEMP 36.8; O2SAT 95; BMI 38.7
--- NOTE | 2023-11-18 10:03 | ECG_ITS ---
APPROVED REPORT Exam: Resting ECG HR:126 bpm ECG Measurements Heart Rate 126 AXES ND 184 P 65 QRSd 106 QRS 93 QT 304 T 53 QTc 378 Conclusion SINUS TACHYCARDIA WITH OCCASIONAL VENTRICULAR PREMATURE COMPLEXES BORDERLINE RIGHT AXIS DEVIATION [QRS AXIS > 90] MODERATE INTRAVENTRICULAR CONDUCTION DELAY [105+ ms QRS DURATION, 80+ ms Q/S IN V1/V2, NO Q AND 60+ ms R IN I/aVL/V5/V6] NONSPECIFIC T-WAVE ABNORMALITY ABNORMAL ECG UNCONFIRMED REPORT Electronically signed by : Richard Coleman MD 11/19/2023 08:25:25
--- NOTE | 2023-11-18 10:03 | ED_ITS ---
Discharge Plan Disposition Patient Disposition: Home, Self-Care Condition: Good Prescriptions Prescriptions: No Action prednisone 20 MG tablet 20 mg PO BID 7 Days Qty: 14 0RF carvedilol 25 MG tablet 25 mg PO BID Qty: 60 0RF lisinopril 20 MG tablet 20 mg PO DAILY 30 Days Qty: 30 0RF amoxicillin-pot clavulanate 1 EACH tablet 1 tab PO TID Qty: 21 0RF doxycycline hyclate 100 mg capsule 100 mg PO BID 10 Days Qty: 20 0RF prednisone 50 mg tablet 50 mg PO DAILY 5 Days Qty: 5 0RF Rx Instructions: Please begin 1 day after ED visit albuterol sulfate 90 mcg/actuation HFA aerosol inhaler 4 inh inhalation Q4H PRN (Reason: shortness of breath or wheezing) Qty: 8.5 0RF Rx Instructions: 4 puffs every 4 hours for 48 hours then as needed for shortness of breath or wheezing following Referrals Follow up/Referrals: Arjun Kraft DO [Staff Physician] - See instructions Activity Restrictions/Add. Instructions Additional Instructions/Restrictions: Please continue to take the steroids and the antibiotics. You may use either the nebulizer breathing treatment, which contains albuterol and ipratropium, or the albuterol inhaler you were prescribed. Please use these every 4-6 hours. Please be mindful of any triggers to your shortness of breath, this, of course, does include smoking. Please return with any new or worsening symptoms. Clinical Impressions Clinical Impression: Acute exacerbation of chronic obstructive pulmonary disease Instructions Patient Instructions: DI for Chronic Obstructive Pulmonary Disease Discharge ED Provider: Tank Segura General Adult HPI General Chief complaint: Shortness of Breath/Dyspnea Stated complaint: SOA Time Seen by Provider: 11/18/23 10:03 History of Present Illness HPI narrative: The patient presents with a chief complaint of difficulty breathing, which began early this morning around 4 AM. The patient utilized an inhaler, which offered temporary relief; however, the symptoms subsequently recurred. Additionally, the patient reports the onset of pain and a persistent cough starting approximately between 9-9:30 AM. There is no indication of a productive cough or the presence of sputum. The patient denies experiencing fevers or chills. Related Data Previous Rx's Medication Instructions Recorded amoxicillin 500 mg-potassium 1 tab PO TID #21 tabs 06/24/18 clavulanate 125 mg tablet carvedilol 25 mg tablet 25 mg PO BID #60 tabs 06/24/18 lisinopril 20 mg tablet 20 mg PO DAILY 30 days #30 tabs 06/24/18 prednisone 20 mg tablet 20 mg PO BID 7 days #14 tabs 06/24/18 albuterol sulfate 90 mcg/actuation 4 inh inhalation Q4H PRN shortness 11/16/23 aerosol inhaler of breath or wheezing #8.5 grams doxycycline hyclate 100 mg capsule 100 mg PO BID 10 days #20 caps 11/16/23 prednisone 50 mg tablet 50 mg PO DAILY 5 days #5 tabs 11/16/23 Allergies Allergy/AdvReac Type Severity Reaction Status Date / Time No Known Allergies Allergy Verified 06/22/18 06:08 [facility] Disclaimer: The information contained in this section may have been updated after the patient was seen, as this information can be updated by other users. Social History Smoking Status: Current every day smoker tobacco type: cigarettes packs per day: 2 second hand exposure: Yes alcohol intake: never current occupational status: unemployed Travel in the last 8 weeks: None household members: spouse housing: house caffeine: Yes ROS Obtained: Yes Systems reviewed as appropriate & no additional complaints except as documented As per HPI Physical Exam General General appearance: alert and in no apparent distress Head Head exam: atraumatic and normocephalic Eye Eye exam: Present normal appearance Neck Neck exam: Present normal inspection Chest Chest inspection: Present normal inspection and symmetric chest wall rise Respiratory Respiratory exam: Present normal lung sounds bilaterally and wheezes; Absent respiratory distress Cardiovascular Cardiovascular exam: Present regular rate and normal rhythm Abdominal Exam Abdominal exam: Present soft Neurological Exam Neurological exam: Present alert and oriented X3 Psychiatric Psychiatric exam: Present normal affect and normal mood Skin Skin exam: Present warm and dry Medical Decision Making Medical Records Medical records reviewed: Yes I reviewed the patient's medical records. Cosme Inquiry Pt receiving controlled substance: No Vital Signs: 11/18/23 09:57 11/18/23 10:31 11/18/23 11:01 Temperature 98.2 F Temperature Source Oral Pulse Rate 117 H 121 H Pulse Rate [Left Radial] 122 H Respiratory Rate 20 20 Blood Pressure 180/120 H 182/128 H Blood Pressure [Right Arm] 197/140 H Blood Pressure Mean 140 146 Blood Pressure Mean [Right Arm] 159 02 Sat by Pulse Oximetry 95 94 L 95 Oxygen Delivery Method Room Air Room Air 11/18/23 11:08 Temperature 98.0 F Temperature Source Pulse Rate 119 H Pulse Rate [Left Radial] Respiratory Rate 19 Blood Pressure 182/128 H Blood Pressure [Right Arm] Blood Pressure Mean Blood Pressure Mean [Right Arm] 02 Sat by Pulse Oximetry Oxygen Delivery Method Room Air Orders (Tests/Meds): ED MEDICATIONS Discontinued Medications Generic Name Dose Route Start Last Admin Trade Name Freq PRN Reason Stop Dose Admin Albuterol/Ipratropium 3 ml 11/18/23 10:10 11/18/23 10:18 Ipratropium/Albuterol 3 Ml Neb IH 11/18/23 10:11 3 ml ONCE ONE Administration Prednisone 60 mg 11/18/23 10:10 11/18/23 10:17 Prednisone 20mg Tab PO 11/18/23 10:11 60 mg ONCE ONE Administration ORDERS Category Date Time Status XR chest 2V Stat Exams 11/18/23 10:09 Completed Medical Decision Narrative: Patient with history and exam per above presenting for evaluation of dyspnea Diagnoses considered include COPD exacerbation, pneumonia, bronchitis, URI. ED treatment included: ED MEDICATIONS Discontinued Medications Generic Name Dose Route Start Last Admin Trade Name Freq PRN Reason Stop Dose Admin Albuterol/Ipratropium 3 ml 11/18/23 10:10 11/18/23 10:18 Ipratropium/Albuterol 3 Ml Neb IH 11/18/23 10:11 3 ml ONCE ONE Administration Prednisone 60 mg 11/18/23 10:10 11/18/23 10:17 Prednisone 20mg Tab PO 11/18/23 10:11 60 mg ONCE ONE Administration ORDERS Category Date Time Status XR chest 2V Stat Exams 11/18/23 10:09 Completed Imaging was independently visualized and interpreted by me, significant for no acute findings Patient was seen by myself 48 hours ago in the emergency department. He was diagnosed with COPD exacerbation at that time. Patient had oxygen requirement at that time, blood gas with acidosis, which resolved upon administration of breathing treatments, steroids, magnesium. He was offered admission at that time however left AGAINST MEDICAL ADVICE, labs were also significant for elevated troponins consistent with demand ischemia. Clinical picture overall is much more reassuring at this time. Patient denies any chest pain upon initial evaluation, does describe some discomfort after administration of breathing treatments that occurs in the setting of tachycardia. He presented to the emergency department on room air, breathing comfortably, remains with similar clinical picture and reports moderate improvement of symptoms upon repeat evaluation. I instructed him to continue course of antibiotics and steroids. He will likely continue to be symptomatic as long as he continues to smoke. At this time he does not meet requirements for inpatient management of his symptoms and is amenable to discharge at this time. Return precautions were given. Critical Care Critical Care Time Critical Care Time: No
--- NOTE | 2023-11-18 10:09 | XR_ITS ---
PROCEDURE INFORMATION: Exam: XR Chest Exam date and time: 11/18/2023 10:09 AM Age: 53 years old Clinical indication: Shortness of breath; Additional info: SOA, HX copd TECHNIQUE: Imaging protocol: Radiologic exam of the chest. Views: 2 views. COMPARISON: CR XR CHEST 2V 11/16/2023 2:38 PM FINDINGS: Lungs: Increased interstitial markings are noted. Pleural spaces: Unremarkable. No pleural effusion. No pneumothorax. Heart/Mediastinum: Unremarkable. No cardiomegaly. Bones/joints: Unremarkable. IMPRESSION: Diffusely increased interstitial markings of the lungs.
[2023-11-18] MEDS: predniSONE 20MG TAB 60 MG PO (10:17)
[2023-11-18] MEDS: IPRATROPIUM/ALBUTEROL 3 ML NEB IH (10:18)
[2023-11-18 10:31] VITALS: BP 180/120; PULSE 117; RESP 20; O2SAT 94
[2023-11-18 11:01] VITALS: BP 182/128; PULSE 121; O2SAT 95
[2023-11-18 11:08] VITALS: BP 182/128; PULSE 119; RESP 19; TEMP 36.7; O2SAT 95
== END 2023-11-18 11:09 | disposition home or self-care (01) ==
PROVIDERS: Emergency Provider Emergency Medicine; PCP Internal Medicine
DX: J44.1 Chronic obstructive pulmonary disease with (acute) exacerbation (principal); R05.9 Cough, unspecified; F17.210 Nicotine dependence, cigarettes, uncomplicated
CPT/HCPCS: 71046; 93005; 99283

== ENCOUNTER 2023-11-29 02:58 | Inpatient (IN) | payer SELFPAY ==
[2023-11-29] VITALS (32 sets, daily range): BP systolic 99–171; BP diastolic 62–117; PULSE 74–117; RESP 15–26; TEMP 36.6–37.2; O2SAT 90–98; BMI 30.2; BMI 30.3
--- NOTE | 2023-11-29 02:56 | ECG_ITS ---
APPROVED REPORT Exam: Resting ECG HR:115 bpm ECG Measurements Heart Rate 115 AXES CA 218 P 69 QRSd 116 QRS 62 QT 319 T 74 QTc 387 Conclusion SINUS TACHYCARDIA WITH FIRST DEGREE AV BLOCK WITH FREQUENT VENTRICULAR PREMATURE COMPLEXES POSSIBLE LEFT ATRIAL ENLARGEMENT [-0.1mV P-WAVE IN V1/V2] MODERATE INTRAVENTRICULAR CONDUCTION DELAY [110+ ms QRS DURATION] ST ELEVATION, PROBABLY EARLY REPOLARIZATION [ST ELEVATION WITH NORMALLY INFLECTED T-WAVE] NONSPECIFIC T-WAVE ABNORMALITY ABNORMAL ECG UNCONFIRMED REPORT Electronically signed by : Richard Coleman MD 11/29/2023 20:09:09
--- NOTE | 2023-11-29 03:10 | XR_ITS ---
PROCEDURE INFORMATION: Exam: XR Chest Exam date and time: 11/29/2023 3:16 AM Age: 53 years old Clinical indication: Pain; Chest pressure; Additional info: Cp TECHNIQUE: Imaging protocol: Radiologic exam of the chest. Views: 1 view. COMPARISON: CR XR CHEST 2V 11/18/2023 10:09 AM FINDINGS: Lungs: Unremarkable. No consolidation. Pleural spaces: Unremarkable. No pleural effusion. No pneumothorax. Heart/Mediastinum: Mild cardiomegaly. Bones/joints: Unremarkable. IMPRESSION: No acute findings.
[2023-11-29] MEDS: NITROGLYCERIN 0.4MG SL TABLET 0.400000000000000022 MG SL (03:15)
[2023-11-29] MEDS: ASPIRIN 325MG TABLET 325 MG PO (03:15)
--- NOTE | 2023-11-29 03:15 | ECG_ITS ---
APPROVED REPORT Exam: Resting ECG HR:109 bpm ECG Measurements Heart Rate 109 AXES RI 216 P 71 QRSd 121 QRS 64 QT 332 T 85 QTc 396 Conclusion SINUS TACHYCARDIA WITH FIRST DEGREE AV BLOCK POSSIBLE LEFT ATRIAL ENLARGEMENT [-0.1mV P-WAVE IN V1/V2] MODERATE INTRAVENTRICULAR CONDUCTION DELAY [110+ ms QRS DURATION] ST ELEVATION CONSISTENT WITH INJURY, PERICARDITIS, OR EARLY REPOLARIZATION [ST ELEVATION W/O NORMALLY INFLECTED T-WAVE] ABNORMAL ECG UNCONFIRMED REPORT Electronically signed by : Richard Coleman MD 11/29/2023 20:08:56
[2023-11-29 03:19] LABS: Basophils # 0.1 K/mm3 (0-0.2); Basophils % 0.4 % (0.1-2.0); Eosinophils # 0.1 K/mm3 (0.0-0.4); Eosinophils % 0.7 % (0.1-12.0); Hematocrit 46.2 % (42.0-52.0); Lymphocytes # 1.1 K/mm3 (0.7-4.5); Lymphocytes % 8.1 % (10-50); Mean Corpuscular HGB Conc 32.5 g/dL (31.8-35.4); Mean Corpuscular Hemoglobin 28.2 pg (27.0-31.2); Mean Corpuscular Volume 86.9 fl (80-94); Mean Platelet Volume 10.2 fl (7.4-10.4); Monocytes % 7.2 % (1.7-9.3); Neutrophils # 11.3 K/mm3 (1.8-7.8); Neutrophils % 83.5 % (37.0-80.0); Platelet Count 169 K/mm3 (142-424); Red Blood Count 5.32 M/mm3 (4.60-6.20); Red Cell Distribution Width 14.9 % (11.5-17.5); White Blood Count 13.5 K/mm3 (4.8-10.8)
[2023-11-29 03:22] LABS: Chloride 95 mmol/L (98-107); Potassium 3.6 mmoL/L (3.5-5.1); Sodium 134 mmol/L (136-145)
--- NOTE | 2023-11-29 03:23 | PC.NURSE ---
in room talking with patient at this time.
[2023-11-29 03:24] LABS: Alanine Aminotransferase 48 U/L (12-78); Blood Urea Nitrogen 10 mg/dl (9-20); Creatinine Clearance Estimated 91 mL/min (50-200); Estimated Glomerular Filt Rate 63 ml/min (>60); GFR (African American) 76 ML/MIN (>60)
[2023-11-29 03:25] LABS: Albumin Level 3.9 g/dl (3.5-5.0); Albumin/Globulin Ratio 1.1 (1.1-1.8); Alkaline Phosphatase 103 U/L (38-126); Anion Gap 11.6 mEq/L (5-15); Aspartate Amino Transferase 33 U/L (17-59); Bilirubin,Total 1.5 mg/dl (0.2-1.3); Calcium 8.4 mg/dl (8.4-10.2); Carbon Dioxide 31 mmol/L (22.0-30.0); Globulin 3.4 g/dL (1.3-3.2); Glucose 235 mg/dl (74-100); Total Protein,Serum 7.3 g/dl (6.3-8.2)
--- NOTE | 2023-11-29 03:28 | ED_ITS ---
Discharge Plan Disposition Patient Disposition: Admitted Clinical Impressions Clinical Impression: Non-ST elevation IA (NSTEMI) Heart failure Qualifiers: Heart failure type: unspecified Heart failure chronicity: acute Qualified Code(s): I50.9 - Heart failure, unspecified Pericarditis Qualifiers: Pericarditis type: unspecified type Chronicity: acute Qualified Code(s): I30.9 - Acute pericarditis, unspecified Discharge ED Provider: Ren Fisher Adult HPI General Chief complaint: Chest Pain Stated complaint: cp Time Seen by Provider: 11/29/23 03:01 Mode of Arrival: Ambulatory Source of Information: Patient Limitations: No Limitations Description of Symptoms (Recalled from ER Triage Doc. by RN): pt c/o rt side chest pain x 2 days. pt states was seen in er on 11/18 for SOA and diagnosed with copd exacerbation History of Present Illness HPI narrative: 53-year-old male, history of hypertension, [id number] diabetes, COPD presents with worsening chest pain. He reports he takes medications that has not seen doctors for at least 5 years. He was seen here before New Years with shortness of breath and was diagnosed with COPD exacerbation and NSTEMI. He left [place] at that time because he did not think he could afford admission. He reports he had some symptomatic improvement, but his chest pain has again returned and worsened, especially over the last few days and tonight. He reports shortness of breath worse with lying down. Chest pain is centrally located, pressure type. Related Data Home Medications Medication Instructions Recorded Confirmed No Known Home Medications 11/29/23 11/29/23 Allergies Allergy/AdvReac Type Severity Reaction Status Date / Time No Known Allergies Allergy Verified 06/22/18 06:08 [facility] Disclaimer: The information contained in this section may have been updated after the patient was seen, as this information can be updated by other users. Social History Smoking Status: Current every day smoker tobacco type: cigarettes packs per day: 2 second hand exposure: Yes alcohol intake: never current occupational status: unemployed Travel in the last 8 weeks: None household members: spouse housing: house caffeine: Yes ROS Obtained: Yes All systems reviewed & no additional complaints except as documented Physical Exam General General appearance: alert Comment: Uncomfortable appearing Head Head exam: atraumatic and normocephalic Eye Eye exam: Present normal appearance, PERRL and EOMI ENT ENT exam: Present normal oropharynx and normal external ear exam Neck Neck exam: Present normal inspection and full ROM Chest Chest inspection: Present normal inspection and symmetric chest wall rise; Absent tenderness Respiratory Respiratory exam: Present other (Bibasilar crackles); Absent respiratory distress Cardiovascular Cardiovascular exam: Present normal rhythm and tachycardia Abdominal Exam Abdominal exam: Present soft; Absent distention, tenderness or guarding Extremities Exam Extremities exam: Present normal inspection; Absent edema or joint swelling Back Exam Back exam: Present normal inspection; Absent tenderness Neurological Exam Neurological exam: Present alert and oriented X3; Absent motor sensory deficit Psychiatric Psychiatric exam: Present normal affect and normal mood Skin Skin exam: Present warm, dry and normal color Lymphatic Lymphatic Findings: no adenopathy Medical Decision Making Medical Records Medical records reviewed: Yes I reviewed the patient's medical records. [place] Inquiry Pt receiving controlled substance: No Cosme was queried for this patient: No Vital Signs: 11/29/23 02:58 11/29/23 03:02 11/29/23 03:18 Temperature 98.9 F Temperature Source Oral Pulse Rate 117 H 111 H Pulse Rate [Right] 117 H Respiratory Rate 16 26 H Blood Pressure 171/117 H Blood Pressure [Right Arm] 169/102 H Blood Pressure Mean [Right Arm] 124 02 Sat by Pulse Oximetry 95 93 L 11/29/23 03:30 11/29/23 04:26 11/29/23 04:00 Temperature 98 F Temperature Source Oral Pulse Rate 103 H 105 H 108 H Pulse Rate [Right] Respiratory Rate 24 16 26 H Blood Pressure 146/92 H 144/96 H 151/101 H Blood Pressure [Right Arm] Blood Pressure Mean [Right Arm] 02 Sat by Pulse Oximetry 92 L 94 L 11/29/23 04:30 Temperature Temperature Source Pulse Rate 102 H Pulse Rate [Right] Respiratory Rate 24 Blood Pressure 143/94 H Blood Pressure [Right Arm] Blood Pressure Mean [Right Arm] 02 Sat by Pulse Oximetry 94 L Lab Data Lab results reviewed: Yes I reviewed the patient's lab results. Lab Results 11/29/23 03:00: WBC 13.5 H, RBC 5.32, Hgb 15.0, Hct 46.2, MCV 86.9, MCH 28.2, MCHC 32.5, RDW 14.9, Plt Count 169, MPV 10.2, Neut % (Auto) 83.5 H, Lymph % (Auto) 8.1 L, [place] % (Auto) 7.2, Eos % (Auto) 0.7, Baso % (Auto) 0.4, Neut # (Auto) 11.3 H, Lymph # (Auto) 1.1, [place] # (Auto) 1.0, Eos # (Auto) 0.1, Baso # (Auto) 0.1, D-Dimer 0.68 H, Sodium 134 L, Potassium 3.6, Chloride 95 L, Carbon Dioxide 31 H, Anion Gap 11.6, BUN 10, Creatinine 1.20, Estimated Creat Clear 91, Estimated GFR 63, Est GFR ( Amer) 76, Glucose 235 H, Calcium 8.4, Total Bilirubin 1.5 H, AST 33, ALT 48, Alkaline Phosphatase 103, Troponin I 0.18 H, Total Protein 7.3, Albumin 3.9, Globulin 3.4 H, Albumin/Globulin Ratio 1.1 11/29/23 03:27: SARS-CoV-2 (PCR) Not detected, Influenza A Untype (PCR) Not detected, Influenza Type B (PCR) Not detected 11/29/23 03:00 11/29/23 03:00 Orders (Tests/Meds): ED MEDICATIONS Generic Name Dose Route Start Last Admin Trade Name Freq PRN Reason Stop Dose Admin Acetaminophen 650 mg 11/29/23 04:27 Acetaminophen 325mg Tab PO 12/29/23 04:26 Q4HP PRN Fever or Mild Pain (1-3) Enoxaparin Sodium 40 mg 11/29/23 09:00 Enoxaparin 40mg/0.4ml Syringe SQ 12/29/23 08:59 DAILY OTTO Furosemide 40 mg 11/29/23 09:00 Furosemide 40mg/4ml Vial IV 12/29/23 08:59 BIDL OTTO Ibuprofen 600 mg 11/29/23 04:26 Ibuprofen 600 Mg Tablet PO 11/29/23 04:27 ONCE ONE Insulin Human Lispro 0 unit 11/29/23 06:00 Humalog 100 Units/Ml 3ml Vial (Ssi) SQ 12/29/23 05:59 ACHS OTTO Protocol Nitroglycerin 0.4 mg 11/29/23 03:09 11/29/23 03:15 Nitroglycerin 0.4mg Sl Tablet SL 12/29/23 03:08 0.4 mg Q5MINP PRN Administration Chest Pain Discontinued Medications Generic Name Dose Route Start Last Admin Trade Name Muna PRN Reason Stop Dose Admin Aspirin 325 mg 11/29/23 03:09 11/29/23 03:15 Aspirin 325mg Tablet PO 11/29/23 03:10 325 mg ONCE ONE Administration Furosemide 80 mg 11/29/23 04:10 11/29/23 04:25 Furosemide 40mg/4ml Vial IV 11/29/23 04:11 80 mg ONCE ONE Administration ORDERS Category Date Time Status Cardiology Consult [Consult to Cardiology] [CONS] Cons 11/29/23 04:10 Active Routine CXR --portable [XR chest portable] Stat Exams 11/29/23 03:10 Completed CBC w/Auto Diff [Complete Blood Count Auto Diff] Stat Lab 11/29/23 03:00 Completed CMP [Comprehensive Metabolic Panel] Stat Lab 11/29/23 03:00 Completed D-Dimer Stat Lab 11/29/23 03:00 Completed Rapid PCR Covid and Flu A/B Stat Lab 11/29/23 03:27 Completed Trop I [Troponin I] Stat Lab 11/29/23 03:00 Completed ECG initial Besson Stat Y 11/29/23 02:56 Completed ECG repeat same Besson Routine Y 11/29/23 03:15 Completed ECG repeat same [place] Routine Y 11/29/23 03:32 Completed ECG Data Tracing #1: I reviewed this ECG and interpreted as documented below: Sinus rhythm, rate of 115, frequent PVCs noted, wandering baseline, concern for ST elevations in the precordial leads with OH depression. Appears somewhat similar to prior. ECG initial impression date: 11/29/23 ECG initial impression time: 03:04 Tracing #2: I reviewed this ECG and interpreted as documented below: Sinus rhythm, rate of 109, diffuse ST elevations noted with OH depression. Less artifact than on previous EKG. does not meet STEMI criteria. ECG initial impression date: 11/29/23 ECG initial impression time: 04:40 Tracing #3: I reviewed this ECG and interpreted as documented below: Repeat EKG obtained after nitroglycerin and improvement in symptoms. Sinus rhythm, rate of 103, no dynamic changes from prior EKG. PVCs noted. ECG initial impression date: 11/29/23 ECG initial impression time: 03:32 HEART Score History (anamnesis): Highly suspicious ECG: Significant ST-deviation Age: 45-65 years Risk factors: 3 or more risk factors Troponin: 1-3x normal limit HEART Score: 8 Medical Decision Narrative: 53-year-old male with history of untreated hypertension, COPD, diabetes presents with worsening chest pain over the last few days, seen 2 weeks ago with COPD exacerbation and NSTEMI after which he left AMA. History was obtained via conversation with patient, chart review. On arrival, patient is afebrile, tachycardic uncomfortable appearing, moving all extremities spontaneously. Full physical exam performed and significant for trace bilateral lower extremity edema, bibasilar crackles Differential includes but is not limited to ACS, PE, NSTEMI, pericarditis, heart failure, cardiomyopathy. Patient was given full dose aspirin, sublingual nitroglycerin for symptomatic management and correction of underlying abnormalities. Workup initiated including CBC CMP troponin EKG x 3, chest x-ray D-dimer. Patient placed on front desk monitor. On re-evaluation, patient blood pressure and chest pain improved after nitrog lycerin. Patient remains in sinus rhythm with tachycardia on my interpretation of front desk monitor Laboratory workup independently interpreted by me and significant for initial troponin 0.18, D-dimer negative by years criteria, no significant renal dysfunction or electrolyte derangement. BNP elevated at 1500. Imaging independently interpreted by me and significant for stable mild bilateral pulmonary edema. See radiology read for full review of final results. CT PE was considered, but deemed unnecessary as patient is negative by years criteria. Bedside ultrasound was performed by me, significant for no pericardial effusion, dilated LV with low ejection fraction, bilateral basilar B-lines EKG independently interpreted by me and significant as documented above, most consistent with pericarditis. Given elevated heart score, elevated troponin, concerning history and ST changes, I had an interactive discussion with Dr. Sheppard. No need for emergent cath at this time. Will plan on initiating diuretics and admitting for further assessment. Given patient history, exam and workup, patient's presentation most likely represents NSTEMI, heart failure, possible pericarditis. Interactive discussion was had with the hospitalist on-call for admission. Procedures Risk/Benefits of Procedure(s) Were Explained: Yes Limited Ultrasound Indication:: Limited cardiac ultrasound Indication: Chest pain Views Obtained: PLAX, PSAX, Apical 4-chamber, Subxiphoid Findings: No pericardial effusion, dilated LV with decreased EF by EPSS, mild right heart strain by TAPSE, no focal wall motion abnormality Impression: No pericardial effusion, dilated LV with decreased EF by EPSS, mild right heart strain by TAPSE, no focal wall motion abnormality Images were saved to permanent archive The study was technically adequate This study was performed by nm, and I personally interpreted all images/videos. Limited lung ultrasound A focused ultrasound exam of the pleural spaces was performed to evaluate for pneumothorax, pulmonary edema, pleural effusion and/or consolidation. The ultrasound was performed with the following indications, as noted in the H&P: Chest pain Identified structures: Bilateral thoracic cavities were examined. Findings: Lung sliding: -Present bilaterally B-lines: -Present bilateral lower lobes, otherwise not significant Pleural effusion: -Absent bilaterally Consolidation: -Absent bilaterally Impression: Moderate bibasilar B-lines concerning for pulmonary edema/volume overload Images were saved to permanent archive The study was technically adequate [facility] [id number] This study was performed by nm, and I personally interpreted all images/videos. Based on my clinical judgement, these images were adequate and did not necessitate further imaging. Critical Care Critical Care Time Critical Care Time: Yes Attestation: On 11/29/23, the high probability of a clinically significant, sudden or life threatening deterioration of the following system(s) required my full and direct attention, intervention and personal management. The time I documented below is in addition to time spent performing reported procedures but includes the following listed in this critical care notation. Total Time Total Critical Care Time: 50
[2023-11-29 03:30] LABS: D-Dimer 0.68 ug/mL (0.0-0.5)
[2023-11-29 03:32] LABS: Coronavirus 19, PCR Not Detected (NotDetected); Influenza A, PCR Not Detected (NotDetected); Influenza B, PCR Not Detected (NotDetected)
--- NOTE | 2023-11-29 03:32 | ECG_ITS ---
APPROVED REPORT Exam: Resting ECG HR:103 bpm ECG Measurements Heart Rate 103 AXES ND 223 P 66 QRSd 120 QRS 58 QT 416 T 69 QTc 476 Conclusion SINUS TACHYCARDIA WITH FIRST DEGREE AV BLOCK POSSIBLE LEFT ATRIAL ENLARGEMENT [-0.1mV P-WAVE IN V1/V2] MODERATE INTRAVENTRICULAR CONDUCTION DELAY [110+ ms QRS DURATION] NONSPECIFIC ST & T-WAVE ABNORMALITY ABNORMAL ECG UNCONFIRMED REPORT Electronically signed by : Richard Coleman MD 11/29/2023 20:08:45
[2023-11-29 03:37] LABS: Troponin I 0.18 ng/ml (0.00-0.034)
--- NOTE | 2023-11-29 03:45 | PC.NURSE ---
in room talking with patient at this time.
--- NOTE | 2023-11-29 04:00 | PC.NURSE ---
at bedside with US at this time.
--- NOTE | 2023-11-29 04:06 | PC.NURSE ---
Milagro Muse at this time.
--- NOTE | 2023-11-29 04:07 | PC.NURSE ---
ED doctor on phone with Dr. Sheppard
--- NOTE | 2023-11-29 04:13 | PC.NURSE ---
observation admission to 202 with dx of nstemi to service of the hospitalist.
[2023-11-29] MEDS: FUROSEMIDE 40MG/4ML VIAL 80 MG IV (04:25)
--- NOTE | 2023-11-29 04:26 | PC.NURSE ---
lasix given, tolerated well. continuing to monitor bp and hr. md aware of current vitals.
--- NOTE | 2023-11-29 04:30 | CT_ITS ---
PROCEDURE INFORMATION: Exam: CTA Chest With Contrast Exam date and time: 11/29/2023 4:54 AM Age: 53 years old Clinical indication: Pain; Chest pressure; Additional info: Chest pain, shortness of breath TECHNIQUE: Imaging protocol: Computed tomographic angiography of the chest with contrast. Exam focused on the arteries. 3D rendering (Not supervised by radiologist): MIP and/or 3D reconstructed images were created by the technologist. Radiation optimization: All CT scans at this facility use at least one of these dose optimization techniques: automated exposure control; mA and/or kV adjustment per patient size (includes targeted exams where dose is matched to clinical indication); or iterative reconstruction. Contrast material: ISOVUE; Contrast volume: 75 ml; Contrast route: INTRAVENOUS (IV); COMPARISON: [facility] CT angio chest 06/22/2018 5:43 AM FINDINGS: Pulmonary arteries: Normal. No pulmonary emboli. Aorta: Unremarkable. No aortic aneurysm. No aortic dissection. Lungs: Minimal basilar atelectasis. Pleural spaces: Unremarkable. No pneumothorax. No pleural effusion. Heart: Mild cardiomegaly. Coronary arteries: No calcified the is seen in the coronary arteries. Lymph nodes: Diffuse mediastinal prominent lymph nodes are seen most prominent in the subcarinal area where they measure 2.0 cm. AP window lymph nodes are also identified. Bones/joints: Unremarkable. No acute fracture. Soft tissues: Unremarkable. IMPRESSION: 1. No evidence of pulmonary embolus or other acute process. 2. Prominent mediastinal lymph nodes of uncertain etiology. 3. Mild cardiomegaly.
--- NOTE | 2023-11-29 04:52 | PC.NURSE ---
patient gone to CT at this time.
[2023-11-29] MEDS: IOPAMIDOL-370 (76%);100ML BOTTLE 75 ML IV (05:10)
[2023-11-29] MEDS: SODIUM CHLORIDE 0.9% 10ML SYR (RAD ONLY) 10 ML IV (05:10)
--- NOTE | 2023-11-29 05:13 | PC.NURSE ---
Patient arrived to floor via wheelchair from the ED at 5:08.
--- NOTE | 2023-11-29 05:30 | PC.NURSE ---
Patient arrived to unit at 0503 via wheelchair from ED. Patient alert and orient X4. Patient oriented to room and educated adjunct instructor in economics light use, bed controller and tv remote with a voice of understanding. Patient denies pain at this time. Full assessment to follow.
[2023-11-29 05:32] LABS: Basophils % 0.2 % (0.1-2.0); Eosinophils # 0.1 K/mm3 (0.0-0.4); Eosinophils % 0.7 % (0.1-12.0); Hematocrit 43.5 % (42.0-52.0); Hemoglobin 14.6 g/dL (14.1-18.0); Lymphocytes # 1.2 K/mm3 (0.7-4.5); Lymphocytes % 8.8 % (10-50); Mean Corpuscular HGB Conc 33.6 g/dL (31.8-35.4); Mean Corpuscular Hemoglobin 28.4 pg (27.0-31.2); Mean Corpuscular Volume 84.3 fl (80-94); Mean Platelet Volume 9.8 fl (7.4-10.4); Monocytes # 0.9 K/mm3 (0.1-1.0); Monocytes % 6.8 % (1.7-9.3); Neutrophils # 11.2 K/mm3 (1.8-7.8); Neutrophils % 83.5 % (37.0-80.0); Platelet Count 154 K/mm3 (142-424); Red Blood Count 5.16 M/mm3 (4.60-6.20); White Blood Count 13.4 K/mm3 (4.8-10.8)
--- NOTE | 2023-11-29 05:33 | P.HP_ITS ---
History of Present Illness *Admission Date: 11/29/23 *Reason for visit:: Chest pain *History of present illness: This is a 53-year-old male with a past medical history tobacco abuse disorder, hypertension, diabetes who is noncompliant with medical follow-up. He reports he has not been to a doctor in approximately 5 years and does not take any home medications for the above-mentioned complaints. He presents today with midsternal/substernal chest pain that radiates up into his chest. States that he had several episodes of this several weeks ago and was offered admission but left AMA. At that time he did have mildly elevated troponins. He states he left AMA due to the needing to take care of certain things at home. He presents back today with pain that has been unrelieved since then. States he has had mild shortness of breath and leg edema. Has been prescribed antibiotics, steroids and inhalers with minimal relief and chest pressure shortness of breath. He does endorse smoking history. States he has been diagnosed with diabetes but is on no medications. On arrival to emergency department he is in no evidence of respiratory distress. Complains more of chest pain and pressure-like symptoms. I was a count of 13, troponin of 0.18, glucose of 235. EKG notable for diffuse ST segment changes. Cardiology was consulted and will see patient in AM. EKG questionable for possible pericarditis. COVID flu RSV negative. [facility] Disclaimer: The information contained in this section may have been updated after the patient was seen, as this information can be updated by other users. Medical History (Updated 11/29/23 @ 13:07 by Diane Huang APRN) Angina pectoris Diabetes Hypertension Non-ST elevation [place] (NSTEMI) Tobacco abuse disorder Family History (Updated 11/29/23 @ 08:11 by Cely Smith RN) Family history of hypertension Mother Family history of myocardial infarction Sister Social History Smoking Status: Current every day smoker tobacco type: cigarettes packs per day: 2 second hand exposure: Yes alcohol intake: never current occupational status: unemployed Travel in the last 8 weeks: None household members: spouse housing: house caffeine: Yes Review of Systems Review of Systems Review of systems:: pertinent systems reviewed and negative unless documented below Meds Home Medications and Allergies Home Medications Medication Instructions Recorded Confirmed Type albuterol sulfate 90 mcg/actuation 1 puff inhalation DAILY PRN 11/29/23 11/29/23 History aerosol inhaler Shortness Of Breath Or Wheezing New Prescriptions to Start Prescriptions: Allergies Allergy/AdvReac Type Severity Reaction Status Date / Time No Known Allergies Allergy Verified 06/22/18 06:08 Exam Data for Last 24 hours Vital signs and Labs for Last 24 Hours: Temp Pulse Resp BP Pulse Ox 98 F 102 H 24 143/94 H 94 L 11/29/23 04:26 11/29/23 04:30 11/29/23 04:30 11/29/23 04:30 11/29/23 04:30 Laboratory Results - last 24 hr 11/29/23 03:00: WBC 13.5 H, RBC 5.32, Hgb 15.0, Hct 46.2, MCV 86.9, MCH 28.2, MCHC 32.5, RDW 14.9, Plt Count 169, MPV 10.2, Neut % (Auto) 83.5 H, Lymph % (Auto) 8.1 L, Rincon % (Auto) 7.2, Eos % (Auto) 0.7, Baso % (Auto) 0.4, Neut # (Auto) 11.3 H, Lymph # (Auto) 1.1, Rincon # (Auto) 1.0, Eos # (Auto) 0.1, Baso # (Auto) 0.1, D-Dimer 0.68 H, Sodium 134 L, Potassium 3.6, Chloride 95 L, Carbon Dioxide 31 H, Anion Gap 11.6, BUN 10, Creatinine 1.20, Estimated Creat Clear 91, Estimated GFR 63, Est GFR ( Amer) 76, Glucose 235 H, Calcium 8.4, Total Bilirubin 1.5 H, AST 33, ALT 48, Alkaline Phosphatase 103, Troponin I 0.18 H, Total Protein 7.3, Albumin 3.9, Globulin 3.4 H, Albumin/Globulin Ratio 1.1 11/29/23 03:27: SARS-CoV-2 (PCR) Not detected, Influenza A Untype (PCR) Not detected, Influenza Type B (PCR) Not detected I & O for Last 24 hours: Intake & Output 11/26/23 11/27/23 11/28/23 11/29/23 23:59 23:59 23:59 23:59 Weight 92.986 kg Constitutional Constitutional: no acute distress and cooperative *Routine HEENT Exam Head: Present normocephalic and atraumatic Eye: Present EOMI ENT: Present mucous membranes moist *Routine Neck Exam Neck: Present supple and full ROM *Routine Respiratory Exam Respiratory: Present CTA bilaterally and normal respiratory effort *Routine Cardiovascular Exam Cardiovascular: Present RRR, Normal S1 and Normal S2 *Routine Abdominal Exam Abdominal: Present soft and normoactive bowel sounds *Routine Rectal Exam Rectal:: deferred *Routine Genitalia Exam Genitalia:: deferred *Routine Extremities Exam Extremities: Present edema (+1 pitting edema to bilateral lower extremities), full ROM and normal capillary refill *Routine Skin Exam Skin: Present intact and dry *Routine Neurological Exam Neurological: Present alert, oriented X3 and CN II-XII intact Assessment and Plan *Assessment and plan (1) Non-ST elevation [place] (NSTEMI): Status: Acute Category: Medical Code(s): I21.4 - Non-ST elevation (NSTEMI) myocardial infarction (2) Diabetes: Status: Chronic Qualifiers: Diabetes mellitus complication status: with hyperglycemia Diabetes mellitus [facility] insulin use: without salvage determiner use Diabetes mellitus type: type 2 Qualified Code(s): E11.65 - Type 2 diabetes mellitus with hyperglycemia Category: Medical Code(s): E11.9 - Type 2 diabetes mellitus without complications (3) Tobacco abuse disorder: Status: Chronic Category: Medical Code(s): Z72.0 - Tobacco use (4) Hypertension: Status: Chronic Category: Medical Code(s): I10 - Essential (primary) hypertension (5) Heart failure: Status: Acute Qualifiers: Heart failure chronicity: acute Heart failure type: unspecified Qualified Code(s): I50.9 - Heart failure, unspecified Category: Medical Code(s): I50.9 - Heart failure, unspecified Plan Admit to medicine NSTEMI Troponin of 0.18 which is increased from [address] Changes consistent with pericarditis. Will dose now with Motrin Cardiology consulted NPO for possible cath Trend tropinins Nitro for chest pain EKG for worsenign or new chest pain Continue ASA daily CHF unspecified Interstitial markings noted on chest x-ray Received IV Lasix in the ED with good urine output No official echo on file, will obtain one in a.m. Continue IV Lasix BNP pending Diabetes mellitus Denies any home medications Will check A1c now Glucose elevated, initiate sliding scale and Symptomatic Nicotine patch Cessation education DVT PPx Lovenox Full code Rounded on patient after nurse practitioner. Personally examined and interviewed patient. Agree with exam findings and care plan as documented.going for [facility] today with cardiology, discussed case, responding to lasix. Echo pending. further management pending cath findings.
[2023-11-29 05:43] LABS: Blood Urea Nitrogen 10 mg/dl (9-20); Carbon Dioxide 29 mmol/L (22.0-30.0); Chloride 95 mmol/L (98-107); Creatinine Clearance Estimated 110 mL/min (50-200); Estimated Glomerular Filt Rate 78 ml/min (>60); GFR (African American) 94 ML/MIN (>60)
[2023-11-29 05:44] LABS: Anion Gap 9.8 mEq/L (5-15); Calcium 8.1 mg/dl (8.4-10.2); Glucose 174 mg/dl (74-100); Potassium 3.8 mmoL/L (3.5-5.1); Sodium 130 mmol/L (136-145)
[2023-11-29 05:49] LABS: Chol/HDL Ratio 4.8 (1-3.5); Cholesterol 188 mg/dl (140-200); HDL Cholesterol 39 mg/dl (40-60); Triglycerides 110 mg/dl (30-150); VLDL Cholesterol 22 mg/dL (0-40)
[2023-11-29 05:52] LABS: NT Pro Brain Natriuretic Pep. 3390 pg/mL (0-125)
[2023-11-29 05:56] LABS: Troponin I 0.19 ng/ml (0.00-0.034)
[2023-11-29 06:00] LABS: Direct LDL Cholesterol 124.79 mg/dL (100-129)
[2023-11-29] MEDS: IBUPROFEN 600 MG TABLET PO (06:55)
--- NOTE | 2023-11-29 07:41 | HMH.PHAINT1 ---
Pharmacy Intervention Comments: Home med list verified with patient at bedside and with external pharmacy list.
--- NOTE | 2023-11-29 09:16 | CA_ITS ---
APPROVED REPORT EXAM: Comprehensive 2D, Doppler, and color-flow Echocardiogram Mirror Painter: Tatiana Myrick, RCS, RVS Ht: 5 ft 8 in Wt: 205lbs BSA: 2.07 BP: 143/94 mmHg Indications: NSTEMI, CP, SOB, Fatigue, Lethargy, cardiomegaly, Smoker 2D Dimensions IVSd 0.96 cm M: 0.6-1.2 LVEF (Visual) 11.10 % PWd 1.34 cm M: 0.6 - 1.2 LVEF (Jean's) 18.00 % M: 52 - 72 LVDd 6.18 cm M: 4.2 - 5.9 LV Volume 243.20 mL M: 62 - 150 LVDs 5.87 cm M: 2.5 - 4.0 LV Volume Index 117.5 mL/m2 M: 34 - 74 Aortic Root 3.21 cm M: 3.1 - 3.7 LA Volume 164.30 mL Left Atrium 5.06 cm M: 3.0 - 4.0 LA Volume Index 79.37 mL/m2 (M/F) 16-34 RVID Base (AP4) 4.23 cm (M/F) 2.5-4.1 EF AP4 26.90 % LVOT 1.96 cm (M/F) 1.5-2.5 EF AP2 11.7 % EF BP 18.0 % GL Strain -8.0 % M-Mode Dimensions RVDd 3.18 cm (0.9-2.6) LVDd 6.18 cm (3.5-5.7) Ao Diam 3.34 cm (2.0-3.7) LVDs 5.59 cm (3.5-5.7) IVSd 0.93 cm (0.6-1.1) PWd 0.93 cm (0.6-1.1) EF (Teich) 12.70% EPSs 2.60 cm FS 5.47% EDV (Teich) 175.20 mL TAPSE 1.23 (<1.7) ESV (Teich) 153.00 mL LV Diastology E Decel Time 149 (160-240 msec) E/A Ratio 5.2 MED E' 7.6 (>= 7 cm/sec) MED A' 8.90 cm/s E'/MED E' Ratio 13.58 (<= 14) LAT E' 7.6 (>= 10 cm/sec) LAT A' 4.30 cm/s E/LAT E' Ratio 13.58 (<= 14) Aortic Valve LVOT Max 63.0 (70-110 cm/s) DICK Index 0.84 cm2/m2 LVOT VTI 9.07 cm AoV Peak Delon. 116.0 (50-130 cm/s) AO Mean GR. 2.70 (<5 mmHg) AO VTI 15.7 (18-25 cm) DICK (VTI) 1.74 (2.5-4.5 cm2) Mitral Valve MV E Max Delon. 103.0 (40-130 cm/s) MV A Velocity 20.0 (40-130 cm/s) E/A Ratio 5.21 MV Decel. Time 149 (160-240 ms) Tricuspid Valve TR P. Velocity 177.00 cm/s RAP Estimate 10.00 mmHg RVSP 22.60 mmHg Left Ventricle The left ventricle is severely dilated. The left ventricular systolic function is severely reduced. There is normal left ventricular wall thickness. There is severe global hypokinesis present. The inferior, lateral, inferolateral, and anterolateral LV barlow are nearly akinetic. Grade 2 diastolic dysfunction is present. LVEF is 20%. Right Ventricle Right ventricle is mild to moderately dilated. Right ventricle is moderately hypokinetic. Atria Left atrium is severely dilated. Right atrium is severely dilated. There is no Doppler evidence of interatrial shunt. Aortic Valve The aortic valve opens well. There is no aortic valvular stenosis. Trace aortic regurgitation. Mitral Valve The mitral valve is mildly thickened. The posterior MV leaflet is tethered and restricted in motion. No evidence of mitral valve stenosis. Moderate to severe mitral regurgitation. The MR jet is eccentric and is posteriorly directed. The mechanism of MR is likely degenerative due to tethering of the posterior MV leaflet (Sid class IIIB). Tricuspid Valve The tricuspid valve leaflets are thin and pliable. Trace tricuspid regurgitation. There is insufficient TR jet to estimate RVSP. Pulmonic Valve The pulmonary valve is normal in structure. Mild pulmonic regurgitation. Great Vessels The aortic root is normal in size. The ascending aorta is normal in size. IVC is normal in size and collapses >50% with inspiration. Pericardium There is no pericardial effusion. Other Information Study Quality: Fair Conclusion Severe reduction in LV systolic function (LVEF 20%). Mild to moderate RV dilation with moderate RV dysfunction. Severe biatrial dilation. Moderate to severe MR. The MR jet is eccentric and is posteriorly directed. The mechanism of MR is likely degenerative due to tethering of the posterior MV leaflet (Sid class IIIB). Electronically signed by : Muna Huerta MD 11/30/2023 14:04:02
[2023-11-29 09:43] LABS: Troponin I 0.16 ng/ml (0.00-0.034)
[2023-11-29] MEDS: ENOXAPARIN 40MG/0.4ML SYRINGE 40 MG SQ (10:28)
[2023-11-29] MEDS: FUROSEMIDE 40MG/4ML VIAL 40 MG IV ×2 (10:29→16:47)
[2023-11-29 10:38] LABS: Troponin I 0.16 ng/ml (0.00-0.034)
[2023-11-29 11:03] LABS: POC Glucose,Bedside 141 (70-110)
--- NOTE | 2023-11-29 11:44 | IR_ITS ---
APPROVED REPORT Patient Location: Inpatient PROCEDURES Selective coronary angiogram Drug-eluting stent deployment to the proximal LAD INDICATION Acute non-ST elevation myocardial infarction, Coronary artery disease Informed consent was obtained prior to the procedure. COMPLICATIONS NONE Estimated Blood Loss: LESS THAN 10 ML TECHNIQUE One percent lidocaine used to anesthetize the right anterior aspect of the wrist. The right radial artery was accessed via the Seldinger technique. A 6 Polish sheath was placed in the right radial artery. 2.5 mg of Verapamil, 800 mcg of nitroglycerin, 1mg Lidocaine and 5000 U Heparin were given through the arterial sheath. The papa catheter was also used to perform selective coronary angiogram. At the end the diagnostic angiogram therapeutic heparin was administered giving a therapeutic ACT and a guide catheter was placed in left main artery followed by a Choice PT active support wire being placed down the LAD. A 4 mm x 12 mm [place] frontier stent was deployed at 16 patrick reducing the hemodynamically severe stenosis to 0%. CHRISTINA-3 flow was present before and after the procedure. At the end the procedure the apparatus was removed the sheath was removed good hemostasis was achieved using TR banding patient was transferred to the postop putting in stable condition ANGIOGRAPHIC RESULTS The left main artery Normal The left anterior descending artery Gives rise to a large high first diagonal artery which has an ostial 50% stenosis followed by proximal 50% stenosis distal to the high first diagonal artery but proximal to a large first septal drywall application supervisor there is an eccentric 80% stenosis in the LAD. The remaining vessel has mild 10% luminal irregularities The circumflex artery Large ramus intermedius originates from the proximal circumflex artery and has mild 20 to 30% luminal irregularities. The circumflex artery has proximal and mid vessel 20 to 30% stenoses The right coronary artery There is a large dominant vessel and has proximal and mid vessel 10 to 20% stenoses. A large posterior descending artery has a proximal 20 to 30% stenosis. IMPRESSION Severe proximal LAD disease which was the culprit for the non-STEMI Successful stenting of the proximal LAD severe disease reduced to 0% with 1 drug-eluting stent Diffuse mild to moderate coronary disease as described above PLAN 1. Effient 10 mg daily plus aspirin 81 mg daily 2. LDL less than 55 to be achieved with high intensity statin 3. Avoidance of tobacco products 4. Risk factor modification 5. Cardiac rehabilitation Electronically signed by : Arjun Sheppard MD 11/29/2023 13:29:08
[2023-11-29 11:58] LABS: Basophils % 0.4 % (0.1-2.0); Eosinophils # 0.1 K/mm3 (0.0-0.4); Eosinophils % 0.6 % (0.1-12.0); Hematocrit 42.1 % (42.0-52.0); Lymphocytes # 1.5 K/mm3 (0.7-4.5); Lymphocytes % 13.1 % (10-50); Mean Corpuscular HGB Conc 33.1 g/dL (31.8-35.4); Mean Corpuscular Hemoglobin 28.1 pg (27.0-31.2); Mean Corpuscular Volume 84.7 fl (80-94); Mean Platelet Volume 10.4 fl (7.4-10.4); Monocytes # 1.1 K/mm3 (0.1-1.0); Monocytes % 9.4 % (1.7-9.3); Neutrophils % 76.6 % (37.0-80.0); Platelet Count 149 K/mm3 (142-424); Red Blood Count 4.98 M/mm3 (4.60-6.20); White Blood Count 11.7 K/mm3 (4.8-10.8)
[2023-11-29 11:59] LABS: Anion Gap 6.4 mEq/L (5-15); Blood Urea Nitrogen 11 mg/dl (9-20); Carbon Dioxide 33 mmol/L (22.0-30.0); Chloride 94 mmol/L (98-107); Creatinine Clearance Estimated 100 mL/min (50-200); Estimated Glomerular Filt Rate 69 ml/min (>60); GFR (African American) 84 ML/MIN (>60); Glucose 146 mg/dl (74-100); Potassium 3.4 mmoL/L (3.5-5.1); Sodium 130 mmol/L (136-145)
[2023-11-29] MEDS: diphenhydrAMINE 50MG/ML VIAL 50 MG IV (12:54)
[2023-11-29] MEDS: NITROGLYCERIN 800MCG/8ML SYR (CATH LAB) 800 MCG IA (12:54)
[2023-11-29] MEDS: VERAPAMIL 2.5MG/ML 2ML VIAL 2.5 MG IV (12:54)
[2023-11-29] MEDS: LIDOCAINE 1% 10ML MDV 20 ML IJ (12:55)
[2023-11-29] MEDS: HEPARIN 1,000 UNITS/ML 10ML VIAL (CATH LAB) 10000 UNIT IV (12:55)
[2023-11-29] MEDS: 0.9 % SODIUM CHLORIDE 500 ML 25 ML IV (12:55)
[2023-11-29] MEDS: HEPARIN 1,000 UNITS/500ML NS (CATH LAB) 3000 UNIT IV (12:55)
--- NOTE | 2023-11-29 12:59 | EXP.CARD.CON ---
History of Present Illness History of Present Illness Consult date: 11/29/23 Requesting physician: Francisco Anne Consult reason: chest pain Chief complaint: chest pain History of present illness: This is a 53-year-old white gentleman who presented to the emergency department with complaints of chest pain. He has a past medical history of hypertension, diabetes and tobacco use. The patient reports that he has not been to see a doctor in approximately 5 years and does not take any home medications. He has been having substernal chest pain that he describes as a pressure sensation that radiates across to his chest. He states that it is associated with shortness of breath. He denies any nausea or diaphoresis. The patient states that this is severe pain. It started several weeks ago. The patient was in the emergency department previously for the same symptoms. He was a non-STEMI then but left AMA because he had to take care of some things at home. He states that his chest pain has progressed and he came back to the emergency department. He still has an elevated troponin consistent with a non-STEMI. His EKG is abnormal. The patient was then referred for admission. He denies any lower extremity edema. He denies any fever, chills, nausea, vomiting, diarrhea, PND or orthopnea. [facility] Disclaimer: The information contained in this section may have been updated after the patient was seen, as this information can be updated by other users. Medical History (Updated 11/29/23 @ 13:07 by Diane Huang APRN) Angina pectoris Diabetes Hypertension Non-ST elevation MA (NSTEMI) Tobacco abuse disorder Family History (Updated 11/29/23 @ 08:11 by Cely Smith RN) Sister Family history of myocardial infarction Mother Family history of hypertension Social History Smoking Status: Current every day smoker tobacco type: cigarettes packs per day: 2 second hand exposure: Yes alcohol intake: never current occupational status: unemployed Travel in the last 8 weeks: None household members: spouse housing: house caffeine: Yes Review of Systems Review of Systems Review of systems:: pertinent systems reviewed and negative unless documented below Constitutional Constitutional: Reports system reviewed and no additional complaints, except as documented and Reports lethargy Eyes Eyes: Reports system reviewed and no additional complaints, except as documented ENT Ears, Nose, Mouth, and Throat: Reports system reviewed and no additional complaints, except as documented *Cardiovascular Cardiovascular: Reports system reviewed and no additional complaints, except as documented, Reports chest pain, Reports chest pain at rest, Reports chest pain with activity, Reports dyspnea and Reports dyspnea on exertion *Respiratory Respiratory: Reports system reviewed and no additional complaints, except as documented, Reports dyspnea and Reports dyspnea on exertion *Gastrointestinal Gastrointestinal: Reports system reviewed and no additional complaints, except as documented *Genitourinary Genitourinary: Reports system reviewed and no additional complaints, except as documented *Musculoskeletal Musculoskeletal: Reports system reviewed and no additional complaints, except as documented Integumentary/Breasts Skin/Breast: Reports system reviewed and no additional complaints, except as documented *Neurologic Neurologic: Reports system reviewed and no additional complaints, except as documented Psychiatric Psychiatric: Reports system reviewed and no additional complaints, except as documented Endocrine Endocrine: Reports system reviewed and no additional complaints, except as documented Hematologic/Lymphatic Hematologic/Lymphatic: Reports system reviewed and no additional complaints, except as documented Allergic/Immunologic Allergic/Immunologic: Reports system reviewed and no additional complaints, except as documented Exam Data for Last 24 hours Vital signs and Labs for Last 24 Hours: Temp Pulse Resp BP Pulse Ox O2 Del Method 98.1 F 97 H 20 136/90 97 Room Air 11/29/23 11:34 11/29/23 11:34 11/29/23 11:34 11/29/23 11:34 11/29/23 11:34 11/29/23 11:34 Laboratory Results - last 24 hr 11/29/23 03:00: WBC 13.5 H, RBC 5.32, Hgb 15.0, Hct 46.2, MCV 86.9, MCH 28.2, MCHC 32.5, RDW 14.9, Plt Count 169, MPV 10.2, Neut % (Auto) 83.5 H, Lymph % (Auto) 8.1 L, [place] % (Auto) 7.2, Eos % (Auto) 0.7, Baso % (Auto) 0.4, Neut # (Auto) 11.3 H, Lymph # (Auto) 1.1, [place] # (Auto) 1.0, Eos # (Auto) 0.1, Baso # (Auto) 0.1, D-Dimer 0.68 H, Sodium 134 L, Potassium 3.6, Chloride 95 L, Carbon Dioxide 31 H, Anion Gap 11.6, BUN 10, Creatinine 1.20, Estimated Creat Clear 91, Estimated GFR 63, Est GFR ( Amer) 76, Glucose 235 H, Calcium 8.4, Total Bilirubin 1.5 H, AST 33, ALT 48, Alkaline Phosphatase 103, Troponin I 0.18 H, Total Protein 7.3, Albumin 3.9, Globulin 3.4 H, Albumin/Globulin Ratio 1.1 11/29/23 03:27: SARS-CoV-2 (PCR) Not detected, Influenza A Untype (PCR) Not detected, Influenza Type B (PCR) Not detected 11/29/23 05:23: WBC 13.4 H, RBC 5.16, Hgb 14.6, Hct 43.5, MCV 84.3, MCH 28.4, MCHC 33.6, RDW 15.0, Plt Count 154, MPV 9.8, Neut % (Auto) 83.5 H, Lymph % (Auto) 8.8 L, [place] % (Auto) 6.8, Eos % (Auto) 0.7, Baso % (Auto) 0.2, Neut # (Auto) 11.2 H, Lymph # (Auto) 1.2, [place] # (Auto) 0.9, Eos # (Auto) 0.1, Baso # (Auto) 0.0, Sodium 130 L, Potassium 3.8, Chloride 95 L, Carbon Dioxide 29, Anion Gap 9.8, BUN 10, Creatinine 1.00, Estimated Creat Clear 110, Estimated GFR 78, Est GFR ( Amer) 94 D, Glucose 174 H D, Hemoglobin A1c 7.0 H, Calcium 8.1 L, Troponin I 0.19 H, NT-Pro-B Natriuret Pep 3390 H, Triglycerides 110, Cholesterol 188, LDL Cholesterol Direct 124.79, VLDL Cholesterol 22, HDL Cholesterol 39 L, Cholesterol/HDL Ratio 4.8 H 11/29/23 08:58: Troponin I 0.16 H 11/29/23 10:02: WBC 11.7 H, RBC 4.98, Hgb 14.0 L, Hct 42.1, MCV 84.7, MCH 28.1, MCHC 33.1, RDW 15.0, Plt Count 149, MPV 10.4, Neut % (Auto) 76.6, Lymph % (Auto) 13.1, [place] % (Auto) 9.4 H, Eos % (Auto) 0.6, Baso % (Auto) 0.4, Neut # (Auto) 9.0 H, Lymph # (Auto) 1.5, [place] # (Auto) 1.1 H, Eos # (Auto) 0.1, Baso # (Auto) 0.0, Sodium 130 L, Potassium 3.4 L, Chloride 94 L, Carbon Dioxide 33 H, Anion Gap 6.4, BUN 11, Creatinine 1.10, Estimated Creat Clear 100, Estimated GFR 69, Est GFR ( Amer) 84, Glucose 146 H, Calcium 8.0 L, Troponin I 0.16 H 11/29/23 10:56: POC Glucose 141 H I & O for Last 24 hours: Intake & Output 11/26/23 11/27/23 11/28/23 11/29/23 23:59 23:59 23:59 23:59 Intake Total 210 / 210 Output Total 0 / 0 Balance 210 / 210 Weight 205 lb 0.126 oz Narrative: EKG #1 is sinus tachycardia with a rate of 115 bpm, first-degree AV block, IVCD and diffuse ST and T wave abnormalities. EKG #2 sinus tachycardia with a rate of 109 bpm, and diffuse ST/T wave abnormalities. EKG #3 sinus tachycardia with a rate of 103 bpm, first-degree AV block, IVCD, and nonspecific ST and T wave abnormalities. Constitutional Constitutional: no acute distress and obese *Routine HEENT Exam Head: Present normocephalic and atraumatic ENT: Present mucous membranes moist *Routine Neck Exam Neck: Present supple, full ROM and normal carotid upstroke; Absent JVD, carotid bruit or lymphadenopathy *Routine Respiratory Exam Respiratory: Present CTA bilaterally, normal respiratory effort, able to speak in complete sentences and symmetric chest movement *Routine Cardiovascular Exam Cardiovascular: Present RRR, Normal S1 and Normal S2; Absent murmur or gallop *Routine Abdominal Exam Abdominal: Present soft and normoactive bowel sounds; Absent tenderness, distended or organomegaly *Routine Extremities Exam Extremities: Present full ROM, pulses intact and normal capillary refill; Absent cyanosis, clubbing or edema *Routine Skin Exam Skin: Present intact and warm; Absent erythema *Routine Neurological Exam Neurological: Present alert, oriented X3 and CN II-XII intact; Absent sensory deficit or motor deficit Routine Psychiatric Exam Psychiatric: Present normal affect Meds Home Medications and Allergies Home Medications Medication Instructions Recorded Confirmed Type albuterol sulfate 90 mcg/actuation 1 puff inhalation DAILY PRN 11/29/23 11/29/23 History aerosol inhaler Shortness Of Breath Or Wheezing New Prescriptions to Start Prescriptions: Allergies Allergy/AdvReac Type Severity Reaction Status Date / Time No Known Allergies Allergy Verified 06/22/18 06:08 Assessment and Plan *Assessment and plan (1) Non-ST elevation MA (NSTEMI): Status: Acute Category: Medical Code(s): I21.4 - Non-ST elevation (NSTEMI) myocardial infarction (2) Angina pectoris: Status: Acute Category: Medical Code(s): I20.9 - Angina pectoris, unspecified (3) Hypertension: Status: Chronic Qualifiers: Hypertension type: primary hypertension Qualified Code(s): I10 - Essential (primary) hypertension Category: Medical Code(s): I10 - Essential (primary) hypertension (4) Tobacco abuse disorder: Status: Chronic Category: Medical Code(s): Z72.0 - Tobacco use (5) Diabetes: Status: Chronic Qualifiers: Diabetes mellitus type: type 2 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 The patient was admitted to the hospital with chest pain. The patient was found to have a non-STEMI. Will plan to proceed with left cardiac catheterization today to evaluate for coronary artery disease. 2. The patient has been educated the risk and benefits of proceeding with left cardiac catheterization. The patient verbalizes understanding and is agreeable in proceeding with the procedure. 3. The patient will be n.p.o. in preparation for left cardiac catheterization. 4. The patient also has an elevated BNP consistent with congestive heart failure. Will obtain an echocardiogram to evaluate his LV function. 5. Continue IV Lasix for diuresis due to his congestive heart failure. 6. Start Jardiance 10 mg daily for congestive heart failure. 7. Will start him on Toprol XL 25 mg p.o. daily for his non-STEMI and CHF. 8. Start low-dose Entresto 24/26 mg p.o. twice daily for CHF. 9. The patient is diabetic. He will need aggressive control of his diabetes. Will defer management of this to the hospitalist. 10. The patient did have an elevated D-dimer. He is negative for a PE. 11. His blood pressure is well-controlled. 12. His LDL goal is less than 55. His LDL is 124 we will start him on Lipitor 80 mg p.o. nightly. 13. Further recommendations will be made pending the patient's response to treatment and the results of his left cardiac catheterization today. Thank you for the opportunity to help participate in the care of this patient. All recommendations and orders are per Dr. Huerta.
[2023-11-29] MEDS: MIDAZOLAM HCL 1MG/1ML 5ML VIAL 1 MG IV (13:23)
[2023-11-29] MEDS: FENTANYL 100MCG/2ML VIAL 50 MCG IV (13:23)
[2023-11-29] MEDS: PRASUGREL 10MG TAB 60 MG PO (13:39)
[2023-11-29] MEDS: IOPAMIDOL-370 (76%);100ML BOTTLE 90 ML IV (13:51)
[2023-11-29 13:58] LABS: CATHL Activated Clotting Time 283 SEC (74-125)
[2023-11-29] MEDS: METOPROLOL SUCCINATE XL 25MG TABLET 25 MG PO (15:08)
[2023-11-29] MEDS: SACUBITRIL/VALSARTAN 24-26MG TABLET 1 EACH PO ×2 (15:08→21:39)
[2023-11-29] MEDS: EMPAGLIFLOZIN 10MG TABLET 10 MG PO (15:08)
[2023-11-29 16:45] LABS: POC Glucose,Bedside 94 (70-110)
[2023-11-29] MEDS: ATORVASTATIN 40MG TABLET 80 MG PO (21:39)
[2023-11-30] VITALS: BP 112/70; PULSE 80; PULSE 84; RESP 17; TEMP 36.6; O2SAT 95
[2023-11-30 02:19] LABS: POC Glucose,Bedside 148 (70-110)
[2023-11-30 02:19] LABS: POC Glucose,Bedside 97 (70-110)
--- NOTE | 2023-11-30 02:28 | PC.NURSE ---
Patient alert and orient X4. Denies pain this far in shift. s/p cath on 11/29/23. Surgical Site is right radial. Dressing C/D/I. Vital signs stable. Patient currently paying in bed with eyes open watching tv.
[2023-11-30 04:00] VITALS: BP 94/63; PULSE 80; PULSE 87; RESP 17; TEMP 36.9; O2SAT 96; BMI 30.3
[2023-11-30 06:45] LABS: Alanine Aminotransferase 32 U/L (12-78); Albumin Level 3.6 g/dl (3.5-5.0); Alkaline Phosphatase 95 U/L (38-126); Anion Gap 6.5 mEq/L (5-15); Aspartate Amino Transferase 26 U/L (17-59); Bilirubin,Total 1.3 mg/dl (0.2-1.3); Blood Urea Nitrogen 17 mg/dl (9-20); Calcium 8.2 mg/dl (8.4-10.2); Carbon Dioxide 35 mmol/L (22.0-30.0); Chloride 95 mmol/L (98-107); Creatinine Clearance Estimated 84 mL/min (50-200); Estimated Glomerular Filt Rate 57 ml/min (>60); GFR (African American) 69 ML/MIN (>60); Globulin 3.5 g/dL (1.3-3.2); Glucose 117 mg/dl (74-100); Magnesium 2.3 mg/dl (1.6-2.3); Potassium 3.5 mmoL/L (3.5-5.1); Sodium 133 mmol/L (136-145); Total Protein,Serum 7.1 g/dl (6.3-8.2)
[2023-11-30 07:14] LABS: POC Glucose,Bedside 110 (70-110)
--- NOTE | 2023-11-30 07:55 | EXP.DC.SUM ---
General Admission date:: 11/29/23 Discharge date: 11/30/23 HPI HPI HPI: This is a 53-year-old male with a past medical history tobacco abuse disorder, hypertension, diabetes who is noncompliant with medical follow-up. He reports he has not been to a doctor in approximately 5 years and does not take any home medications for the above-mentioned complaints. He presents today with midsternal/substernal chest pain that radiates up into his chest. States that he had several episodes of this several weeks ago and was offered admission but left AMA. At that time he did have mildly elevated troponins. He states he left AMA due to the needing to take care of certain things at home. He presents back today with pain that has been unrelieved since then. States he has had mild shortness of breath and leg edema. Has been prescribed antibiotics, steroids and inhalers with minimal relief and chest pressure shortness of breath. He does endorse smoking history. States he has been diagnosed with diabetes but is on no medications. On arrival to emergency department he is in no evidence of respiratory distress. Complains more of chest pain and pressure-like symptoms. I was a count of 13, troponin of 0.18, glucose of 235. EKG notable for diffuse ST segment changes. Cardiology was consulted and will see patient in AM. EKG questionable for possible pericarditis. COVID flu RSV negative. Hospital Course Hospital Course Hospital Course: 53-year-old gentleman who presented to ER with chest pain and was admitted with NSTEMI. Underwent left heart cath with stenting to his LAD. Has some other mild to moderate coronary artery disease noted. Placed on Effient and aspirin for dual antiplatelet therapy. Cardiology was consulted and assisted with care. Stable for discharge home. Attempts to place LifeVest complicated by patient's lack of insurance. Patient declined LifeVest prior to discharge home. Problems addressed as follows: NSTEMI Heart failure with reduced ejection fraction -Presented with NSTEMI, status post left heart cath. Stents to the LAD. Started on Effient and aspirin. Continue daily. Echo also obtained showing reduced ejection fraction of 20 to 25%. Severe LV dysfunction. Discussed risk of sudden cardiac and need for LifeVest. Patient declined LifeVest prior to discharge home. Blood pressure appears well-controlled. Initiated on high intensity statin for LDL of 124. Goal LDL less than 55. Continue Jardiance, Entresto, metoprolol, Lasix, spironolactone daily. See med rec for full details. Stable for discharge home with plan for outpatient follow-up with cardiology for further management. Diabetes mellitus A1c elevated at 7. Treated symptomatically during admission. Stable on no medications at goal at this time. Recommend reevaluating med needs when patient has insurance in the next month. Spent 30 minutes in discharge counseling, documentation, chart review, and direct care with patient. Exam Data for Last 24 hours Vital signs and Labs for Last 24 Hours: Temp Pulse Resp BP Pulse Ox O2 Del Method 98.4 F 87 17 94/63 L 96 Room Air 11/30/23 04:00 11/30/23 04:00 11/30/23 04:00 11/30/23 04:00 11/30/23 04:00 11/30/23 05:00 Laboratory Results - last 24 hr 11/29/23 06:59: POC Glucose 148 H 11/29/23 08:58: Troponin I 0.16 H 11/29/23 10:02: WBC 11.7 H, RBC 4.98, Hgb 14.0 L, Hct 42.1, MCV 84.7, MCH 28.1, MCHC 33.1, RDW 15.0, Plt Count 149, MPV 10.4, Neut % (Auto) 76.6, Lymph % (Auto) 13.1, [place] % (Auto) 9.4 H, Eos % (Auto) 0.6, Baso % (Auto) 0.4, Neut # (Auto) 9.0 H, Lymph # (Auto) 1.5, [place] # (Auto) 1.1 H, Eos # (Auto) 0.1, Baso # (Auto) 0.0, Sodium 130 L, Potassium 3.4 L, Chloride 94 L, Carbon Dioxide 33 H, Anion Gap 6.4, BUN 11, Creatinine 1.10, Estimated Creat Clear 100, Estimated GFR 69, Est GFR ( Amer) 84, Glucose 146 H, Calcium 8.0 L, Troponin I 0.16 H 11/29/23 10:56: POC Glucose 141 H 11/29/23 13:54: Activated Clotting Time 283 H* 11/29/23 16:38: POC Glucose 94 11/29/23 21:42: POC Glucose 97 11/30/23 05:54: Sodium 133 L, Potassium 3.5, Chloride 95 L, Carbon Dioxide 35 H, Anion Gap 6.5, BUN 17 D, Creatinine 1.30 H, Estimated Creat Clear 84, Estimated GFR 57 L, Est GFR ( Amer) 69, Glucose 117 H, Calcium 8.2 L, Magnesium 2.3, Total Bilirubin 1.3, AST 26, ALT 32 D, Alkaline Phosphatase 95, Total Protein 7.1, Albumin 3.6, Globulin 3.5 H, Albumin/Globulin Ratio 1.0 L 11/30/23 06:36: POC Glucose 110 I & O for Last 24 hours: Intake & Output 11/27/23 11/28/23 11/29/23 11/30/23 23:59 23:59 23:59 23:59 Intake Total 770 / 1010 240 / 240 Output Total 1500 / 1500 0 / 0 Balance -730 / -490 240 / 240 Weight 92.99 kg 92.99 kg Constitutional Constitutional: no acute distress, obese and chronically ill appearing *Routine HEENT Exam Head: Present normocephalic Eye: Present EOMI and PERRL ENT: Present mucous membranes moist *Routine Neck Exam Neck: Present supple; Absent lymphadenopathy *Routine Respiratory Exam Respiratory: Present CTA bilaterally *Routine Cardiovascular Exam Cardiovascular: Present RRR *Routine Abdominal Exam Abdominal: Present soft and normoactive bowel sounds; Absent tenderness *Routine Extremities Exam Extremities: Absent cyanosis, clubbing or edema *Routine Skin Exam Skin: Present warm; Absent rash *Routine Neurological Exam Neurological: Present alert, oriented X3 and moving all extremities; Absent altered mental status Results Data Completed and Pending Labs on day of discharge: Labs from last 24 hours 11/30/23 11/30/23 11/29/23 06:36 05:54 21:42 WBC RBC Hgb Hct MCV MCH MCHC RDW Plt Count MPV Neut % (Auto) Lymph % (Auto) [place] % (Auto) Eos % (Auto) Baso % (Auto) Neut # (Auto) Lymph # (Auto) [place] # (Auto) Eos # (Auto) Baso # (Auto) Activated Clotting Time Sodium 133 L Potassium 3.5 Chloride 95 L Carbon Dioxide 35 H Anion Gap 6.5 BUN 17 D Creatinine 1.30 H Estimated Creat Clear 84 Estimated GFR 57 L Est GFR ( Amer) 69 Glucose 117 H POC Glucose 110 97 Calcium 8.2 L Magnesium 2.3 Total Bilirubin 1.3 AST 26 ALT 32 D Alkaline Phosphatase 95 Troponin I Total Protein 7.1 Albumin 3.6 Globulin 3.5 H Albumin/Globulin Ratio 1.0 L 11/29/23 11/29/23 11/29/23 16:38 13:54 10:56 WBC RBC Hgb Hct MCV MCH MCHC RDW Plt Count MPV Neut % (Auto) Lymph % (Auto) [place] % (Auto) Eos % (Auto) Baso % (Auto) Neut # (Auto) Lymph # (Auto) [place] # (Auto) Eos # (Auto) Baso # (Auto) Activated Clotting Time 283 H* Sodium Potassium Chloride Carbon Dioxide Anion Gap BUN Creatinine Estimated Creat Clear Estimated GFR Est GFR ([facility] Amer) Glucose POC Glucose 94 141 H Calcium Magnesium Total Bilirubin AST ALT Alkaline Phosphatase Troponin I Total Protein Albumin Globulin Albumin/Globulin Ratio 11/29/23 11/29/23 11/29/23 10:02 08:58 06:59 WBC 11.7 H RBC 4.98 Hgb 14.0 L Hct 42.1 MCV 84.7 MCH 28.1 MCHC 33.1 RDW 15.0 Plt Count 149 MPV 10.4 Neut % (Auto) 76.6 Lymph % (Auto) 13.1 [place] % (Auto) 9.4 H Eos % (Auto) 0.6 Baso % (Auto) 0.4 Neut # (Auto) 9.0 H Lymph # (Auto) 1.5 [place] # (Auto) 1.1 H Eos # (Auto) 0.1 Baso # (Auto) 0.0 Activated Clotting Time Sodium 130 L Potassium 3.4 L Chloride 94 L Carbon Dioxide 33 H Anion Gap 6.4 BUN 11 Creatinine 1.10 Estimated Creat Clear 100 Estimated GFR 69 Est GFR ([facility] Amer) 84 Glucose 146 H POC Glucose 148 H Calcium 8.0 L Magnesium Total Bilirubin AST ALT Alkaline Phosphatase Troponin I 0.16 H 0.16 H Total Protein Albumin Globulin Albumin/Globulin Ratio DS: Diagnosis Discharge Diagnosis (1) Non-ST elevation [place] (NSTEMI): Status: Acute Code(s): I21.4 - Non-ST elevation (NSTEMI) myocardial infarction (2) Diabetes: Status: Chronic Code(s): E11.9 - Type 2 diabetes mellitus without complications Qualifiers: Diabetes mellitus complication status: with hyperglycemia 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 Diabetes mellitus type: type 2 Qualified Code(s): E11.65 - Type 2 diabetes mellitus with hyperglycemia (3) Tobacco abuse disorder: Status: Chronic Code(s): Z72.0 - Tobacco use (4) Hypertension: Status: Chronic Code(s): I10 - Essential (primary) hypertension Qualifiers: Hypertension type: primary hypertension Qualified Code(s): I10 - Essential (primary) hypertension (5) Heart failure: Status: Acute Code(s): I50.9 - Heart failure, unspecified Qualifiers: Heart failure chronicity: acute Heart failure type: unspecified Qualified Code(s): I50.9 - Heart failure, unspecified Meds Home Medications and Allergies Home Medications Medication Instructions Recorded Confirmed Type albuterol sulfate 90 mcg/actuation 1 puff inhalation DAILY PRN 11/29/23 11/29/23 History aerosol inhaler Shortness Of Breath Or Wheezing aspirin 81 mg tablet,delayed 81 mg PO DAILY 30 days #30 tabs 11/30/23 Rx release atorvastatin 40 mg tablet 80 mg PO HS 30 days #60 tabs 11/30/23 Rx dapagliflozin propanediol 10 mg 10 mg PO DAILY 30 days #30 tabs 11/30/23 Rx tablet (Farxiga) furosemide 40 mg tablet 40 mg PO DAILY 30 days #30 tabs 11/30/23 Rx metoprolol succinate 25 mg 25 mg PO DAILY 30 days #30 tabs 11/30/23 Rx tablet,extended release 24 hr prasugrel 10 mg tablet 10 mg PO DAILY 30 days #30 tabs 11/30/23 Rx sacubitril 24 mg-valsartan 26 mg 1 tab PO BID 30 days #60 tabs 11/30/23 Rx tablet (Entresto) spironolactone 25 mg tablet 25 mg PO DAILY 30 days #30 tabs 11/30/23 Rx New Prescriptions to Start Prescriptions: niranjan Anne,Francisco atorvastatin Dayana,Francisco dapagliflozin propanediol [Farxiga] Francisco Anne furosemide Francisco Anne metoprolol succinate Francisco Anne prasugrel Dayana,Francisco sacubitril-valsartan [Entresto] Francisco Anne spironolactone Francisco Anne Allergies Allergy/AdvReac Type Severity Reaction Status Date / Time No Known Allergies Allergy Verified 06/22/18 06:08 Discharge Plan Disposition Patient Disposition: Home, Self-Care Condition: Fair Discharge Order Discharge Orders: Discharge Order (Routine); Ordered 11/30/23 Ordered By: Francisco Anne Follow up Plan Follow up with: Ag Bradley MD [Staff Physician] - 12/07/23 2:00 pm Arjun Sheppard MD [Staff Physician] - 12/06/23 8:30 am Prescriptions/Medication Reconciliation: New atorvastatin 40 mg Tablet 80 mg PO HS 30 Days Qty: 60 0RF aspirin 81 mg Tablet,Delayed Release (Dr/Ec) 81 mg PO DAILY 30 Days Qty: 30 0RF metoprolol succinate 25 mg Tablet Extended Release 24 Hr 25 mg PO DAILY 30 Days Qty: 30 0RF prasugrel 10 mg Tablet 10 mg PO DAILY 30 Days Qty: 30 0RF Entresto 24-26 mg Tablet 1 tab PO BID 30 Days Qty: 60 0RF furosemide 40 mg Tablet 40 mg PO DAILY 30 Days Qty: 30 0RF spironolactone 25 mg Tablet 25 mg PO DAILY 30 Days Qty: 30 0RF Farxiga 10 mg tablet 10 mg PO DAILY 30 Days Qty: 30 0RF Continued albuterol sulfate 90 mcg/actuation HFA aerosol inhaler 1 puff INHALATION DAILY PRN (Reason: Shortness Of Breath Or Wheezing) Problem Reconciliation Problems Reviewed?: Yes Patient Discharge Instructions ACTIVITY: Continue current activity DIET: continue same diet and low fat, low cholesterol Patient Instructions: DI for Cardiac Catheterization, DI for Surgical Site Infection, DI for Chest Pain Providers Primary Care Provider: Provider,Referral Admit Provider: Francisco Anne Attending Provider: Francisco Anne
[2023-11-30 08:00] VITALS: BP 122/76; PULSE 85; PULSE 87; RESP 18; TEMP 36.5; O2SAT 97
[2023-11-30] MEDS: SACUBITRIL/VALSARTAN 24-26MG TABLET 1 EACH PO (09:03)
[2023-11-30] MEDS: ASPIRIN EC 81MG TABLET 81 MG PO (09:03)
[2023-11-30] MEDS: ENOXAPARIN 40MG/0.4ML SYRINGE 40 MG SQ (09:03)
[2023-11-30] MEDS: METOPROLOL SUCCINATE XL 25MG TABLET 25 MG PO (09:03)
[2023-11-30] MEDS: PRASUGREL 10MG TAB 10 MG PO (09:03)
[2023-11-30] MEDS: EMPAGLIFLOZIN 10MG TABLET 10 MG PO (09:03)
[2023-11-30] MEDS: FUROSEMIDE 40MG/4ML VIAL 40 MG IV (09:03)
[2023-11-30] MEDS: FUROSEMIDE 40 MG TABLET PO (11:23)
[2023-11-30] MEDS: SPIRONOLACTONE 25MG TABLET 25 MG PO (11:24)
[2023-11-30 12:00] VITALS: PULSE 90
--- NOTE | 2023-11-30 12:33 | P.PN_ITS ---
Subjective Subjective Date: 11/30/23 Time: 10:00 Principal diagnosis: NONSTEMI Interval history: This is a 53-year-old gentleman who presented to the hospital with chest pain. The patient was found to have a non-STEMI. He underwent left cardiac catheterization yesterday and had a stent to his LAD. The patient also has ischemic cardiomyopathy with an ejection fraction of approximately 20 to 25%. This morning the patient states that he is feeling much better. He denies any chest pain or pressure. He denies any shortness of breath or edema. He denies any fever, chills, nausea, vomiting, diarrhea, PND or orthopnea. Exam Data for Last 24 hours Vital signs and Labs for Last 24 Hours: Temp Pulse Resp BP Pulse Ox O2 Del Method 97.7 F 87 18 122/76 97 Room Air 11/30/23 08:00 11/30/23 08:00 11/30/23 08:00 11/30/23 08:00 11/30/23 08:00 11/30/23 08:00 Laboratory Results - last 24 hr 11/29/23 06:59: POC Glucose 148 H 11/29/23 13:54: Activated Clotting Time 283 H* 11/29/23 16:38: POC Glucose 94 11/29/23 21:42: POC Glucose 97 11/30/23 05:54: Sodium 133 L, Potassium 3.5, Chloride 95 L, Carbon Dioxide 35 H, Anion Gap 6.5, BUN 17 D, Creatinine 1.30 H, Estimated Creat Clear 84, Estimated GFR 57 L, Est GFR ( Amer) 69, Glucose 117 H, Calcium 8.2 L, Magnesium 2.3, Total Bilirubin 1.3, AST 26, ALT 32 D, Alkaline Phosphatase 95, Total Protein 7.1, Albumin 3.6, Globulin 3.5 H, Albumin/Globulin Ratio 1.0 L 11/30/23 06:36: POC Glucose 110 I & O for Last 24 hours: Intake & Output 11/27/23 11/28/23 11/29/23 11/30/23 23:59 23:59 23:59 23:59 Intake Total 770 / 1010 600 / 600 Output Total 1500 / 1500 0 / 0 Balance -730 / -490 600 / 600 Weight 205 lb 0.126 oz 205 lb 0.126 oz Constitutional Constitutional: no acute distress and obese *Routine HEENT Exam Head: Present normocephalic and atraumatic ENT: Present mucous membranes moist *Routine Neck Exam Neck: Present supple, full ROM and normal carotid upstroke; Absent JVD, carotid bruit or lymphadenopathy *Routine Respiratory Exam Respiratory: Present CTA bilaterally, normal respiratory effort, able to speak in complete sentences and symmetric chest movement *Routine Cardiovascular Exam Cardiovascular: Present RRR, Normal S1 and Normal S2; Absent murmur or gallop *Routine Abdominal Exam Abdominal: Present soft and normoactive bowel sounds; Absent tenderness, distended or organomegaly *Routine Extremities Exam Extremities: Present full ROM, pulses intact and normal capillary refill; Absent cyanosis, clubbing or edema *Routine Skin Exam Skin: Present intact and warm; Absent erythema *Routine Neurological Exam Neurological: Present alert, oriented X3 and CN II-XII intact; Absent sensory deficit or motor deficit Routine Psychiatric Exam Psychiatric: Present normal affect Progress Note: A&P Assessment and plan (1) Non-ST elevation [place] (NSTEMI): Status: Acute (2) CAD in [place] artery: Status: Acute (3) Stented coronary artery: Status: Acute (4) HFrEF (heart failure with reduced ejection fraction): Status: Acute (5) Ischemic cardiomyopathy: Status: Acute (6) LV dysfunction: Status: Acute (7) Diabetes: Status: Chronic (8) Tobacco abuse disorder: Status: Chronic (9) Hypertension: Status: Chronic (10) Hyperlipidemia: Status: Acute Assessment and Plan Assessment and Plan for All Diagnoses:: Plan: 1. The patient presented to the hospital with chest pain and was admitted with a non-STEMI. The patient underwent left cardiac catheterization yesterday and had stenting to his LAD. The patient does have all other mild to moderate coronary artery disease noted. The patient will be on Effient and aspirin for dual antiplatelet therapy. 2. The patient has HFrEF with an ejection fraction of 20 to 25%. The patient has severe LV dysfunction and is an increased risk for sudden cardiac . Due to the severe LV dysfunction the patient will need a LifeVest in place prior to discharge home. Will get his LifeVest ordered today. 3. Coronary artery disease stable. 4. His blood pressure is well-controlled. 5. His LDL goal is less than 55. His LDL is 124. He has been started on a statin. 6. The patient does have HFrEF and ischemic cardiomyopathy. Will continue Jardiance, Entresto, metoprolol. 7. Will switch his IV Lasix over to Lasix 40 mg p.o. daily. 8. Start spironolactone 25 mg p.o. daily. 9. The patient is diabetic. He will need aggressive control of his diabetes. Will defer management to the hospitalist. 10. The patient is stable for discharge home today from a cardiac standpoint once a LifeVest is in place. He will be discharged on the following cardiac medications: Aspirin 81 mg daily, Lipitor 80 mg p.o. nightly, Jardiance 10 mg daily, Lasix 40 mg daily, metoprolol XL 25 mg daily, Effient 10 mg daily, Entresto 24/26 mg p.o. twice daily, and spironolactone 25 mg daily. The patient will need to follow-up in cardiology clinic next week Thank you for the opportunity to help participate in the care of this patient. All recommendations and orders are per Dr. Huerta.
[2023-11-30 16:00] VITALS: PULSE 95
--- NOTE | 2023-12-03 15:03 | CARE MANAGER ---
Contacted patient related to hospital stay. I had faxed information at time of discharge to [facility] for patient assistance. patient has not heard back from them. He does have his medications and is aware of follow up appointments. LAQUITA Haney
== END 2023-11-30 16:58 | disposition home or self-care (01) | DRG 321 ==
LOC: ER 03:38 → 2ND 04:27
PROVIDERS: Internal Medicine; Nurse Practitioner Acute Care; Admitting Provider Internal Medicine Adolescent Medicine; Emergency Provider Emergency Medicine; Visit Provider Internal Medicine Adolescent Medicine
PROC: 027034Z Dilation of Coronary Artery, One Artery with Drug-eluting Intraluminal Device, Percutaneous Approach (ICD-10-PCS; principal; 2023-11-29 14:00)
DX: I21.4 Non-ST elevation (NSTEMI) myocardial infarction (principal); I50.21 Acute systolic (congestive) heart failure; I30.9 Acute pericarditis, unspecified; I25.10 Atherosclerotic heart disease of native coronary artery without angina pectoris; J44.9 Chronic obstructive pulmonary disease, unspecified; F17.210 Nicotine dependence, cigarettes, uncomplicated; Z79.4 Long term (current) use of insulin; E11.65 Type 2 diabetes mellitus with hyperglycemia; I11.0 Hypertensive heart disease with heart failure; I25.2 Old myocardial infarction
CPT/HCPCS: 36415; 71045; 71275; 80048; 80053; 80061; 82962; 83036; 83735; 83880; 84484; 85025; 85347; 85378; 87636; 92928; 93005; 93306; 93454; 99152; 99291; C1725; C1769; C1876; C9600; J1644; Q9967

== ENCOUNTER 2025-07-16 10:27 | Outpatient (CLI) | payer OTHER, SELFPAY ==
--- NOTE | 2025-07-16 10:45 | XR_ITS ---
FINAL REPORT CLINICAL HISTORY: RIGHT ARM PAIN RIGHT ARM WEAKNESS PARESTHESIA OF ARM FINDINGS: Three-view of the right shoulder were obtained. There is no prior exam for comparison. There is no fracture or dislocation. Degenerative joint disease is noted. Soft tissues are unremarkable. IMPRESSION: Degenerative change without acute osseous abnormality of the right shoulder. Reviewed, Interpreted and Dictated by Mandy Cardona MD Transcribed by Ina Hansen Authenticated and [facility]
--- NOTE | 2025-07-16 10:45 | XR_ITS ---
FINAL REPORT CLINICAL HISTORY: RIGHT ARM PAIN RIGHT ARM WEAKNESS PARESTHESIA OF ARM FINDINGS: AP, oblique, and lateral views of the right elbow were obtained. There is no prior exam for comparison. There is a very small calcification along the dorsal elbow at the olecranon which could be a small loose body or old avulsion fragment. No other osseous abnormality identified. Joint space is preserved. There is no joint effusion or other soft tissue abnormality. IMPRESSION: No acute osseous abnormality of the right elbow. Calcification at the olecranon could be a loose body or old avulsion fragment. Reviewed, Interpreted and Dictated by Mandy Cardona MD Transcribed by Ina Hansen Authenticated and [facility]
--- NOTE | 2025-07-16 10:45 | XR_ITS ---
FINAL REPORT CLINICAL HISTORY: RIGHT ARM PAIN RIGHT ARM WEAKNESS PARESTHESIA OF ARM FINDINGS: AP, oblique, and lateral views of the right wrist were obtained. There is no prior exam for comparison. There is no acute fracture or dislocation. The joint spaces are preserved. The soft tissues are normal. IMPRESSION: No acute osseous abnormality of the right wrist. Reviewed, Interpreted and Dictated by Mandy Cardona MD Transcribed by Ina Hansen Authenticated and [facility]
== END 2025-07-16 23:59 | disposition home or self-care (01) ==
LOC: RAD 10:32
PROVIDERS: PCP Nurse Practitioner; Visit Provider Nurse Practitioner
DX: M19.011 Primary osteoarthritis, right shoulder (principal); M62.81 Muscle weakness (generalized); R93.6 Abnormal findings on diagnostic imaging of limbs; R20.2 Paresthesia of skin
CPT/HCPCS: 73030; 73080; 73110

== ENCOUNTER 2025-07-21 22:34 | Emergency (ER) | payer OTHER, SELFPAY ==
[2025-07-21 22:45] VITALS: BP 189/105; PULSE 94; RESP 19; TEMP 36.9; O2SAT 97; BMI 31.0
[2025-07-21] MEDS: LIDOCAINE 1% 20ML MDV 20 ML IJ (23:02)
[2025-07-21] MEDS: AMOXICILLIN/CLAVULANATE POTASSIUM 875/125MG TABLET 1 EACH PO (23:02)
--- NOTE | 2025-07-21 23:05 | ED_ITS ---
Discharge Plan Disposition Patient Disposition: Home, Self-Care Prescriptions Prescriptions: New amoxicillin-pot clavulanate 875-125 mg tablet 1 tab PO BID 10 Days Qty: 20 0RF oxycodone 5 mg tablet 5 mg PO Q6H PRN (Reason: pain) Qty: 12 0RF No Action metformin 500 mg tablet 500 mg PO BID Patient Comments: TAKE 1 TABLET BY MOUTH TWICE DAILY WITH MEALS aspirin 81 mg tablet,delayed release (DR/EC) 81 mg PO DAILY 30 Days Qty: 30 5RF atorvastatin 40 mg tablet 80 mg PO HS 30 Days Qty: 60 5RF Farxiga 10 mg tablet 10 mg PO DAILY 30 Days Qty: 30 5RF furosemide 40 mg tablet 40 mg PO DAILY 30 Days Qty: 30 5RF spironolactone 25 mg tablet 25 mg PO DAILY 30 Days Qty: 30 5RF prasugrel HCl 10 mg tablet 10 mg PO DAILY Qty: 30 11RF Entresto 49-51 mg tablet 1 tab PO BID Qty: 60 5RF metoprolol succinate 50 mg tablet extended release 24 hr 50 mg PO DAILY 30 Days Qty: 90 1RF glipizide 2.5 mg tablet 2.5 mg PO BID Qty: 180 2RF albuterol sulfate 90 mcg/actuation HFA aerosol inhaler 1 puff INHALATION DAILY PRN (Reason: Shortness Of Breath Or Wheezing) Referrals Follow up/Referrals: Kika Lobo APRN [Primary Care Provider, Medical] - See instructions Activity Restrictions/Add. Instructions Additional Instructions/Restrictions: I am prescribing Augmentin, which is a different antibiotic. I do encourage you to take this instead of the amoxicillin. Do not take both. I am also prescribing a short course of oxycodone to help with severe pain. You can take this in addition to Tylenol and ibuprofen. It is imperative that you follow-up with a dentist as soon as possible as you will likely have to have teeth pulled and the abscess drained. If you develop any new or worsening symptoms, such as shortness of breath, difficulty swallowing, or if you become concerned for your health for any reason, return to the emergency department for evaluation Clinical Impressions Clinical Impression: Dental infection Print Language Print Language: Bangladeshi Discharge ED Provider: Leann Sutherland Adult [facility] General Chief complaint: Dental/Oral Stated complaint: Toothache Time Seen by Provider: 07/21/25 22:49 Mode of Arrival: Ambulatory Source of Information: Patient Description of Symptoms (Recalled from ER Triage Doc. by RN): Pt presents to ED for a toothache and swelling. Pt states this has been going on for approx 3 days and he's unable to get any relief. Pt has visible swelling to the L side of his jaw. Pt rates pain 7/10. Pt is A&O*4 and family is bedside. History of Present Illness HPI narrative: Alex Zambrano is a 55-year-old male with a past medical history of diabetes, hypertension, NSTEMI, HFrEF who presents to the emergency department for complaints of dental pain and swelling. Over the last 3 days, patient had pain and swelling to his left lower jaw and is try to get into a dentist, however with it being Labor Day weekend, he has not been able to see a dentist. He denies any fevers, difficulty swallowing, difficulty breathing. He has been taking Tylenol at home without relief. Related Data Home Medications ?Medication ?Instructions ?Recorded ?Confirmed albuterol sulfate 90 mcg/actuation 1 puff inhalation D AILY PRN 11/29/23 12/27/23 aerosol inhaler Shortness Of Breath Or Wheez ing metformin 500 mg tablet 500 mg PO BID 01/28/2401/27 Previous Rx's ?Medication ?Instructions ?Recorded aspirin 81 mg tablet,delayed 81 mg PO DAILY 30 days #3 0 tabs 12/06/23 release atorvastatin 40 mg tablet 80 mg (2 x 40 mg) PO HS 30 d ays 12/06/23 #60 tabs dapagliflozin propanediol 10 mg 10 mg PO DAILY 30 days #30 tabs 12/06/23 tablet (Farxiga) furosemide 40 mg tablet 40 mg PO DAILY 30 days #30 t abs 12/06/23 spironolactone 25 mg tablet 25 mg PO DAILY 30 days #30 tabs 12/06/23 prasugrel HCl 10 mg tablet 10 mg PO DAILY #30 tabs 07/12 sacubitril 49 mg-valsartan 51 mg 1 tab PO BID #60 tabs 12/27/23 tablet (Entresto) metoprolol succinate 50 mg 50 mg PO DAILY 30 days #90 tabs 09/19/24 tablet,extended release 24 hr glipizide 2.5 mg tablet 2.5 mg PO BID #180 tabs 11/20 01/13 amoxicillin 875 mg-potassium 1 tab PO BID 10 days #20 tabs 07/21/25 clavulanate 125 mg tablet oxycodone 5 mg tablet 5 mg PO Q6H PRN pain #12 tab s 07/21/25 Allergies Allergy/AdvReac Type Severity Reaction Status Date / Time No Known Allergies Allergy Verified 01/28/24 09:25 [facility] Disclaimer: The information contained in this section may have been updated after the patient was seen, as this information can be updated by other users. Medical History Hyperlipidemia LV dysfunction Ischemic cardiomyopathy HFrEF (heart failure with reduced ejection fraction) CAD in [place] artery Angina pectoris Non-ST elevation [place] (NSTEMI) Hypertension Tobacco abuse disorder Diabetes Surgical History Stented coronary artery Family History Sister Family history of myocardial infarction Mother Family history of hypertension Social History Smoking Status: Current every day smoker tobacco type: cigarettes packs per day: 2 second hand exposure: Yes alcohol intake: never current occupational status: unemployed Travel in the last 8 weeks?: None household members: spouse housing: house caffeine: Yes Have you lived/traveled outside [place] in past 30 days?: No Contact w/someone who lives/traveled outside [place] past 30 days?: No Exposure to someone with infectious disease in past 14 days?: No Do you have a fever (greater than 100.4 F or 38 C)?: No Have you tested positive for COVID-19?: No Exposed to someone with COVID-19 in past 14 days?: No Do you have a sore throat?: No Do you have a cough?: No Do you have any weakness?: No Do you have any diarrhea?: No Are you experiencing any unusual bleeding?: No Do you have any muscle aches/pain?: No Do you have any abdominal pain?: No Are you experiencing loss of taste or smell?: No Other Medical History Have you received the Flu Vaccine for this season: No Have you received the Pneumonia Vaccine: No ROS Obtained: Yes Systems reviewed as appropriate & no additional complaints except as documented Physical Exam General General appearance: alert and in no apparent distress Head Head exam: atraumatic Eye Eye exam: Present normal appearance ENT ENT exam: Present normal external ear exam Expanded ENT Exam Open Mouth Image: 2 1. dental caries throughout, swelling and erythema to the gumline Neck Neck exam: Present full ROM Chest Chest inspection: Present symmetric chest wall rise Respiratory Respiratory exam: Present normal lung sounds bilaterally; Absent respiratory distress, wheezes or stridor Cardiovascular Cardiovascular exam: Present regular rate and normal rhythm Abdominal Exam Abdominal exam: Present soft; Absent tenderness or guarding exam: Present deferred Extremities Exam Extremities exam: Present normal inspection Back Exam Back exam: Present normal inspection Neurological Exam Neurological exam: Present alert and oriented X3 Psychiatric Psychiatric exam: Present normal affect Skin Skin exam: Present warm and dry Medical Decision Making Medical Records Screening: Per USPSTF and CDC recommendations, given the prevalence of disease in our region, it is our hospital?s policy to screen for HIV and viral Hepatitis for all patients aged 18 and over and those with ongoing risk factors. Cosme Inquiry Pt receiving controlled substance: Yes Cosme was queried for this patient: Yes Risks and benefits of using a controlled substance: were discussed with pt by me Vital Signs: 07/21/25 22:45 Temperature 98.5 F Temperature Source Oral Pulse Rate [Left] 94 H Respiratory Rate 19 Blood Pressure [Right Arm] 189/105 H Blood Pressure Mean [Right Arm] 133 02 Sat by Pulse Oximetry 97 Oxygen Delivery Method Room Air Orders (Tests/Meds): ED MEDICATIONS Discontinued Medications Generic Name Dose Route Start Last Admin Trade Name Rayq PRN Reason Stop Dose Admin Amoxicillin/Clavulanate Potassium 1 each 07/21/25 22:58 07/21/25 23:02 Amoxicillin/Clavulanate Potassium 875/125mg Tablet PO 07/21/25 22:59 1 each ONCE ONE Administration Lidocaine HCl 20 ml 07/21/25 22:55 07/21/25 23:02 Lidocaine 1% 20ml Mdv IJ 07/21/25 22:56 20 ml ONCE ONE Administration Medical Decision Narrative: Alex Zambrano is a 55-year-old male with a past medical history of diabetes, hypertension, NSTEMI, HFrEF who presents to the emergency department for complaints of dental pain and swelling. Over the last 3 days, patient had pain and swelling to his left lower jaw and is try to get into a dentist, however with it being Labor Day weekend, he has not been able to see a dentist. He denies any fevers, difficulty swallowing, difficulty breathing. He has been taking Tylenol at home without relief. On arrival, patient is hypertensive, borderline tachycardic, afebrile, oxygen saturation 97% on room air. Physical exam, stated above, reveals an uncomfortable. Male in no respiratory distress. He is tolerating his secretions well. No muffling of the voice. He has some swelling and tenderness over the left lower jaw. Oropharyngeal exam shows dental caries throughout, specifically along the left lower molars. There is swelling and erythema to the gumline to tooth #18. No tenderness to percussion. Uvula is midline. No evidence of peritonsillar abscess. Low suspicion for retropharyngeal abscess. Is felt that no CT soft tissue neck is indicated at this time. Patient likely has a dental infection/abscess as the source of his pain. I did offer an inferior alveolar nerve block for pain relief and patient was agreeable to pursue this option. Patient and state that they have attempted to get into the dentist, however it being the holiday weekend, they were unable to do so. They do plan on calling the dentist first thing in the morning. Patient underwent left inferior alveolar nerve block and had relief of his symptoms after this. Patient did state that [facility], however he has not been able to pick it up. Patient received a dose of Augmentin here in the emergency department. Will send patient with prescription for oxycodone for pain and instruct him to take Tylenol as well. Will send a prescription for Augmentin but discussed that he is not to take both Augmentin and amoxicillin together. Return precautions were given. All questions were answered. He and his demonstrated understanding and were in agreement this plan. He was then discharged from the emergency department in stable condition. Critical Care Critical Care Time Critical Care Time: No
[2025-07-21 23:52] VITALS: BP 170/96; PULSE 101; RESP 20; TEMP 36.7; O2SAT 97
== END 2025-07-21 23:53 | disposition home or self-care (01) ==
PROVIDERS: Emergency Provider Student in an Organized Health Care Education/Training Program; PCP Nurse Practitioner
DX: K04.7 Periapical abscess without sinus (principal); I10 Essential (primary) hypertension; E78.5 Hyperlipidemia, unspecified
CPT/HCPCS: 99283